=== PATIENT | female | born 1975 | race Caucasian/White ===

== ENCOUNTER → 2018-11-11 07:36 | Outpatient (CLI) | payer OTHER, SELFPAY ==
--- NOTE | 2018-11-11 | DI.MG.S_ITS ---
BILATERAL DIGITAL SCREENING MAMMOGRAM 3D/2D WITH CAD: 11/11/2018 CLINICAL: Routine screening. Family history of breast cancer. Comparison is made to exams dated: 10/22/2017 mammogram, 06/02/2016 mammogram, and 04/22/2015 mammogram - [facility]. The tissue of both breasts is heterogeneously dense. This may lower the sensitivity of mammography. Current study was also evaluated with a Computer Aided Detection (CAD) system. There is an asymmetry in the left breast middle depth lateral region seen on the craniocaudal view only. No other significant masses, calcifications, or other findings are seen in either breast. IMPRESSION: INCOMPLETE: NEEDS ADDITIONAL IMAGING EVALUATION The asymmetry in the left breast is indeterminate. Ultrasound with possible additional views are recommended. This exam was interpreted at Station ID: [id number]. NOTE: For mammograms, a report in lay terms will be sent to the patient. Approximately 15% of breast malignancies will not be visualized mammographically. In the management of a palpable breast mass, a negative mammogram must not discourage biopsy of a clinically suspicious lesion. Electronically Signed By: Mariajose summers/orion:11/11/2018 16:24:58 letter sent: Additional Imaging Needed ACR BI-RADS Category 0: Incomplete 3340F
== END ==
PROVIDERS: PCP Family Medicine; Visit Provider Internal Medicine
DX: Z12.31 Encounter for screening mammogram for malignant neoplasm of breast (principal); Z80.3 Family history of malignant neoplasm of breast
CPT/HCPCS: 77063; 77067

== ENCOUNTER → 2018-12-03 13:14 | Outpatient (CLI) | payer OTHER, SELFPAY ==
--- NOTE | 2018-12-03 12:00 | DI.MG.S_ITS ---
Patient Name: JC MAR date: 1975 Sex: F Attending Physician: Jeff Indications: Date: 12/03/2018 13:37 At the request of: JAMES LOZA Procedure: MM special view LT UNILATERAL LEFT DIGITAL DIAGNOSTIC MAMMOGRAM 3D/2D WITH ADDITIONAL VIEWS: 12/03/2018 CLINICAL: Additional evaluation requested from prior study. Family history of breast cancer. Comparison is made to exams dated: 11/11/2018 mammogram, 06/02/2016 mammogram, and 10/22/2017 mammogram - [facility]. The tissue of left breast is heterogeneously dense. This may lower the sensitivity of mammography. There is an oval equal density mass measuring 10mm in size with a circumscribed margin in the left breast central to the nipple anterior depth 3.5 cm from the nipple. No architectural distortion. No other significant masses or calcifications are seen in the breast. IMPRESSION: INCOMPLETE: NEEDS ADDITIONAL IMAGING EVALUATION The oval equal density mass in the left breast is indeterminate. An ultrasound is recommended and will be performed immediately after this study. This exam was interpreted at Station ID: [id number]. NOTE: For mammograms, a report in lay terms will be sent to the patient. Approximately 15% of breast malignancies will not be visualized mammographically. In the management of a palpable breast mass, a negative mammogram must not discourage biopsy of a clinically suspicious lesion. Electronically Signed By: Ladarius Guthrie M.D. aty/:12/03/2018 19:11:11 ACR BI-RADS Category 0: Incomplete 3340F
--- NOTE | 2018-12-03 13:17 | DI.US.S_ITS ---
PROCEDURE: US BREAST LT LIMITED COMPARISON: None. INDICATIONS: Follow-up abnormal mammogram FINDINGS: IMPRESSION: Dictated by: Ladarius Guthrie M.D. on 12/03/2018 at 19:11 Approved by: Ladarius Guthrie M.D. on 12/03/2018 at 19:19
== END ==
PROVIDERS: PCP Internal Medicine; Visit Provider Internal Medicine
DX: R92.8 Other abnormal and inconclusive findings on diagnostic imaging of breast (principal); N60.02 Solitary cyst of left breast; Z80.3 Family history of malignant neoplasm of breast
CPT/HCPCS: 76642; 77065; G0279

== ENCOUNTER → 2019-03-13 15:24 | Outpatient (CLI) | payer OTHER, SELFPAY ==
[2019-03-13 16:40] LABS: Add Manual Diff / Slide Review NO; Basophils Absolute Auto 0 /uL (0-100); Basophils Percent Auto 0.4 % (0-2); Eosinophils Absolute Auto 100 /uL (0-450); Eosinophils Percent Auto 1.6 % (2-4); Hematocrit 40.2 % (36-46); Hemoglobin 13.4 g/dL (12.0-16.0); Lymphocytes Absolute Auto 2700 /uL (1100-4500); Lymphocytes Percent Auto 39.2 % (25-40); Mean Corpuscular HGB Conc 33.2 % (30-36); Mean Corpuscular Hemoglobin 29.9 PG (26-34); Mean Corpuscular Volume 89.9 fL (80-100); Monocytes Absolute Auto 500 /uL (0-900); Monocytes Percent Auto 6.6 % (3-14); Neutrophils Absolute Auto 3700 /uL (1500-7000); Neutrophils Percent Auto 52.2 % (50-75); Platelet Count 324 X10^3/uL (150-400); Red Blood Cell Count 4.48 X10^6/uL (4.0-5.2); Red Cell Distribution Width 13.2 % (11.6-14.8)
[2019-03-13 16:41] LABS: Monotest Negative (Negative)
[2019-03-13 18:31] LABS: Vitamin D 25 Hydroxy (D3) 41.3 ng/mL (30.0-100.0)
[2019-03-13 18:45] LABS: TSH w/ Reflex to FT4 1.21 uIU/mL (0.47-4.68)
[2019-03-13 18:46] LABS: BUN Creatinine Ratio 21.4 (6-22); Blood Urea Nitrogen 15 mg/dL (7-17); Calcium 9.6 mg/dL (8.4-10.2); Carbon Dioxide 24 mmol/L (22-32); Chloride 99 mmol/L (98-107); Estimated Glomerular Filt Rate > 60.0 mL/min (>60); Glucose 85 mg/dL (70-100); HEMOLYSIS < 15 (0-50); Potassium 4.4 mmol/L (3.4-5.1); Sodium 138 mmol/L (137-145)
[2019-03-13 19:36] LABS: Vitamin B12 936 pg/mL (239-931)
== END ==
PROVIDERS: PCP Student in an Organized Health Care Education/Training Program; Visit Provider Student in an Organized Health Care Education/Training Program
DX: R53.83 Other fatigue (principal); Z20.828 Contact with and (suspected) exposure to other viral communicable diseases; E66.9 Obesity, unspecified; F32.9 Major depressive disorder, single episode, unspecified; F41.9 Anxiety disorder, unspecified; Z91.89 Other specified personal risk factors, not elsewhere classified
CPT/HCPCS: 36415; 80048; 82306; 82607; 84443; 85025; 86318

== ENCOUNTER → 2019-06-02 08:50 | Outpatient (CLI) | payer OTHER, SELFPAY ==
--- NOTE | 2019-06-02 08:52 | DI.US.S_ITS ---
LIMITED ULTRASOUND OF LEFT BREAST AND AXILLA: 06/02/2019 CLINICAL: 6 month follow-up of complicated cysts. Additional spot on mammogram today. Comparison is made to exams dated: 06/02/2019 mammogram, 12/03/2018 ultrasound, 12/03/2018 mammogram, 11/11/2018 mammogram, 10/22/2017 mammogram, and 06/02/2016 mammogram - [facility]. Color flow and real-time ultrasound of the left breast 3 o'clock, 12 o'clock, and axilla regions were performed on the areas of interest. There is 1.3 cm x 0.4 cm x 1.2 cm oval complex cyst with a septated internal wall in the left breast at 12 o'clock middle depth. This oval complex cyst is of mixed echogenicity with posterior acoustic enhancement. This abnormality is increased in size and correlates with mammography findings. Color flow imaging demonstrates that there is no vascularity present. There also is 0.8 cm x 0.5 cm x 0.7 cm oval cyst with a septated internal wall in the left breast at 3 o'clock middle depth. This oval cyst is hypoechoic with internal echoes and posterior acoustic enhancement. This correlates with mammography findings. Color flow imaging demonstrates that there is no vascularity present. Additionally, there is a stable benign 0.7 cm x 0.4 cm x 0.7 cm oval simple cyst with a smooth internal wall in the left breast at 12 o'clock middle depth. This oval simple cyst is anechoic with a well-defined boundary and posterior acoustic enhancement. Color flow imaging demonstrates that there is no vascularity present. No abnormalities were seen sonographically in the left axilla. IMPRESSION: SUSPICIOUS OF MALIGNANCY The 1.3 cm x 0.4 cm x 1.2 cm oval complex cyst in the left breast at 12 o'clock middle depth is consistent with a complex cyst and is at a low suspicion for malignancy. An ultrasound guided biopsy is recommended. The 0.8 cm x 0.5 cm x 0.7 cm oval cyst in the left breast at 3 o'clock middle depth is consistent with a complicated cyst and is probably benign. Follow-up mammogram and ultrasound in 6 months is recommended. The stable 0.7 cm x 0.4 cm x 0.7 cm oval simple cyst in the left breast at 12 o'clock middle depth is benign. The findings were discussed with the patient at the conclusion of the study by Dr. Soriano. This exam was interpreted at Station ID: [id number]. Electronically Signed By: Chago Varghese M.D. ddgeorgie/:06/02/2019 15:16:47 letter sent: Biopsy Required Ultrasound BI-RADS: 4a Suspicious abnormality - low suspicion for malignancy
--- NOTE | 2019-06-02 08:52 | DI.MG.S_ITS ---
UNILATERAL LEFT DIGITAL DIAGNOSTIC MAMMOGRAM 3D/2D SHORT-TERM FOLLOW-UP: 06/02/2019 CLINICAL: Patient returns for a 6 month follow up of the left breast. Comparison is made to exams dated: 12/03/2018 mammogram, 11/11/2018 mammogram, and 10/22/2017 mammogram - [facility]. The tissue of left breast is heterogeneously dense. This may lower the sensitivity of mammography. There is 1 cm oval low density mass with a circumscribed margin in the left breast at 12 o'clock anterior depth. This is not significantly changed. There also is 0.7 cm oval low density mass with a circumscribed margin in the left breast at 2 o'clock middle depth. No other significant masses or calcifications are seen in the breast. IMPRESSION: INCOMPLETE: NEEDS ADDITIONAL IMAGING EVALUATION The 1 cm oval low density mass in the left breast at 12 o'clock anterior depth is indeterminate. An ultrasound is recommended. The 0.7 cm oval low density mass in the left breast at 2 o'clock middle depth is indeterminate. An ultrasound is recommended. This exam was interpreted at Station ID: [id number]. NOTE: For mammograms, a report in lay terms will be sent to the patient. Approximately 15% of breast malignancies will not be visualized mammographically. In the management of a palpable breast mass, a negative mammogram must not discourage biopsy of a clinically suspicious lesion. Electronically Signed By: Chago enamorado/orion:06/02/2019 09:43:27 ACR BI-RADS Category 0: Incomplete 3340F
== END ==
PROVIDERS: PCP Student in an Organized Health Care Education/Training Program; Visit Provider Registered Nurse
DX: R92.8 Other abnormal and inconclusive findings on diagnostic imaging of breast (principal); N60.02 Solitary cyst of left breast
CPT/HCPCS: 76642; 77065; G0279

== ENCOUNTER → 2019-06-08 13:08 | Outpatient (CLI) | payer OTHER, SELFPAY | PROVIDERS: PCP Student in an Organized Health Care Education/Training Program; Visit Provider Physician Assistant | DX: J02.9 Acute pharyngitis, unspecified (principal) | CPT/HCPCS: 87070 ==

== ENCOUNTER → 2019-06-23 07:40 | Outpatient (CLI) | payer OTHER, SELFPAY ==
--- NOTE | 2019-06-23 | DI.MG.S_ITS ---
UNILATERAL LEFT DIGITAL DIAGNOSTIC MAMMOGRAM POST-NEEDLE BIOPSY: 06/23/2019 CLINICAL: Left breast mass. Comparison is made to exams dated: 06/02/2019 mammogram, 12/03/2018 mammogram, and 11/11/2018 mammogram - [facility]. The tissue of left breast is heterogeneously dense. This may lower the sensitivity of mammography. There is a biopsy clip in the left breast at 12 o'clock at the biopsy site. IMPRESSION: INCOMPLETE: NEEDS ADDITIONAL IMAGING EVALUATION The biopsy clip is at the biopsy site. This exam was interpreted at Station ID: [id number]. NOTE: For mammograms, a report in lay terms will be sent to the patient. Approximately 15% of breast malignancies will not be visualized mammographically. In the management of a palpable breast mass, a negative mammogram must not discourage biopsy of a clinically suspicious lesion. Electronically Signed By: Rhina Sharma M.D. fx/:06/23/2019 09:06:45 ACR BI-RADS Category 0: Incomplete 3340F
--- NOTE | 2019-06-23 | PATH_ITS ---
[facility] Accession Number: [id number] . 01 Material submitted: . breast - LEFT BREAST MASS 12:00 5 CM FROM NIPPLE . 01 Clinical history: . MASS OF LEFT BREAST . 01 Diagnosis: Left Breast, Mass at 12 o'clock, 5 cm from Nipple, Biopsy: Fragments of apocrine cyst wall. Background breast with fibrocystic change including focal usual ductal hyperplasia, columnar cell change/hyperplasia, and associated microcalcifications. Negative for atypia, carcinoma in situ, and malignancy. V/06/24/2019 . 01 Comment: Deeper levels are examined. . 01 Electronically signed: . Rosa Corrales MD, Pathologist NPI- [id number] . 01 Gross description: . Received one formalin-filled container labeled with the patient's name and designated left breast mass 12 o'clock 5 cm from nipple. The specimen is received with a plastic filter, sample loose in container and consists of multiple light yellow-jerry portions of soft tissue which range in size from less than 0.1 cm to 0.8 cm in greatest dimension. The specimen is filtered, wrapped, and entirely submitted in one cassette. Collection date: 06/23/2019. Collection time per container: 8:40 AM. Total fixation time: 12 hours, up to 24. ([id number]) /FRR . 01 Pathologist provided ICD-10: N60.09 . 01 CPT . 098975 Performed at: [address] [id number] MD Chago Gomez MD Phone: [phone]
--- NOTE | 2019-06-23 07:42 | DI.US.S_ITS ---
ULTRASOUND GUIDED BIOPSY LEFT BREAST USING VACUUM DEVICE WITH POST MAMMOGRAPHIC AND ULTRASOUND IMAGIN06/23/2019 CLINICAL: Left breast mass. PATIENT CONSENT: Risks (minor bleeding, infection, vasovagal reaction and repeat procedure), benefits and alternatives were explained to the patient and written informed consent was obtained. Correlation is made to exams dated: 06/02/2019 ultrasound, 06/02/2019 mammogram, 12/03/2018 ultrasound, 12/03/2018 mammogram, and 11/11/2018 mammogram - [facility]. An ultrasound guided biopsy using real-time ultrasound was performed for the complex cyst located in the left breast at 12 o'clock. This was described on the previous ultrasound report. The skin was prepped in the usual manner. Local anesthetic was administered to the access site. The abnormality was approached from the lateral aspect. A 13 gauge biopsy needle was placed adjacent to the abnormality under ultrasound guidance. Once the needle was documented to be in the correct location, six specimens were obtained using the Mammotome biopsy system. Post procedure mammographic and ultrasound imaging demonstrates the clip at the targeted area. The specimens were sent to the laboratory for pathological analysis. IMPRESSION: ULTRASOUND GUIDED BIOPSY BENIGN Ultrasound guided biopsy of the cyst in the left breast posterior depth was successful. Pathology indicates benign cyst (BC), usual ductal hyperplasia (DHU), fibrocystic changes (FC), and columnar cell change with micro-calcifications present. Pathology results are concordant with imaging findings. The 0.8 cm x 0.5 cm x 0.7 cm oval cyst in the left breast at 3 o'clock middle depth is consistent with a complicated cyst and is probably benign. Follow-up mammogram and ultrasound in 6 months is recommended. This exam was interpreted at Station ID: [id number]. Rhina alejo,kristopher/:06/30/2019 17:42:47
== END ==
PROVIDERS: PCP Student in an Organized Health Care Education/Training Program; Visit Provider Registered Nurse
DX: N63.20 Unspecified lump in the left breast, unspecified quadrant (principal); R92.8 Other abnormal and inconclusive findings on diagnostic imaging of breast; N60.09 Solitary cyst of unspecified breast
CPT/HCPCS: 19083; 77065

== ENCOUNTER 2019-07-29 16:50 | Emergency (ER) | payer OTHER, SELFPAY ==
[2019-07-29] VITALS (17 sets, daily range): BP systolic 124–187; BP diastolic 81–112; PULSE 80–114; RESP 11–20; TEMP 37; O2SAT 96–100; BMI 32.8
--- NOTE | 2019-07-29 16:59 | DI.RAD.S_ITS ---
PROCEDURE: XR ANKLE LT 2V INDICATIONS: slipped and fell on ankle TECHNIQUE: 2 views of the ankle were acquired. COMPARISON: None. FINDINGS: Bones: There is a dislocated, comminuted, displaced distal fibular fracture and distal tibial fracture. The fibular fracture appears impacted. The talus appears grossly intact. The calcaneus appears intact. The mid foot and visualized portions of the forefoot appear intact. Soft tissues: No tibiotalar joint effusion. Achilles tendon appears normal. IMPRESSION: Fracture dislocation at the mortise joint which is only partially characterized on this limited view. Dictated by: Mariajose Israel M.D. on 07/29/2019 at 17:24 Approved by: Mariajose Israel M.D. on 07/29/2019 at 17:26
[2019-07-29] MEDS: ONDANSETRON 4 MG/2 ML INJ IV (17:03)
[2019-07-29] MEDS: HYDROMORPHONE 0.5 MG INJ IV ×3 (17:03→21:45)
--- NOTE | 2019-07-29 17:06 | ED.LOWEXIN ---
HPI - Extremity Injury (Lower) <DARELL Choudhury - Last Filed: 07/30/19 00:08> General Chief Complaint: Extremity Injury, Lower Stated Complaint: L ankle Fx Time Seen by Provider: 07/29/19 16:55 Source: patient and EMS Mode of arrival: EMS Limitations: no limitations History of Present Illness HPI Narrative: This is a 43-year-old female, smoker, brought in by [employer]ics from her work after she had injured her left ankle. Patient reports she was trying to break off a box by stepping on it, she missed the landing on a ground and fell backwards and immediately for heard popping sounds with pain. Patient reports some tingling and numbness to right foot, able to move but with pain, and has sensation. Patient denies injuring any other areas including head, neck, arms. Patient's affected foot and ankle was splinted by a pillow and had received analgesia before arriving to ED by EMS. Related Data Home Medications Medication Instructions Recorded Confirmed multivitamin [Multiple Vitamins] #0 04/30/17 06/08/19 [probiotic ] #0 01/07/18 06/08/19 ascorbic acid (vitamin C) 1,000 mg PO QDAY #0 01/07/18 06/08/19 Previous Rx's Medication Instructions Recorded omeprazole magnesium [Prilosec OTC] 20 mg PO QDAY #30 tab 07/17/17 buspirone 15 mg tablet 15 mg PO BID #180 tab 08/05/18 cetirizine 10 mg chewable tablet 10 mg PO QDAY #90 tab 08/05/18 escitalopram oxalate 20 mg tablet 20 mg PO QDAY #90 tab 08/05/18 bupropion HCl 150 mg 24 hr tablet, 150 mg PO QAM #30 tab 04/11/19 extended release hydrocodone-acetaminophen [[place]] 1 tab PO Q6H PRN #20 tab 07/29/19 Allergies Allergy/AdvReac Type Severity Reaction Status Date / Time No Known Drug Allergies Allergy Verified 07/29/19 16:58 Review of Systems <DARELL Choudhury - Last Filed: 07/30/19 00:08> Review of Systems Narrative: General: Denies fever, chills, fatigue, malaise, sweats. HEENT: Denies sinus pain, ear pain, sore throat, difficulty swallowing, dizziness. Respiratory: Denies dyspnea, cough, wheezing, hemoptysis, sputum. Cardiovascular: Denies chest pain, palpitations, orthopnea, edema. Gastrointestinal: Denies nausea, vomiting, abdominal pain, diarrhea, constipation, melena. : Denies dysuria, frequency, incontinence, hematuria, urinary retention. Musculoskeletal: See HPI Skin: Denies rash, skin lesions, or other. Neurologic: Denies weakness, headache, numbness, change in speech, confusion, seizures, incoordination. Psychiatric: No concerning psychosocial issues. 12-point review of systems is negative except for those stated above. PFSH <DARELL Choudhury - Last Filed: 07/30/19 00:08> Medical History Abnormal Pap smear of cervix (Chronic ~08/2014) Methamphetamine abuse (Chronic) Vaginal delivery (Resolved) Family History (Updated 04/09/14 @ 00:00 by Darya Hernandez MD) Mother Breast cancer Social History Smoking Status: Current every day smoker alcohol intake: never substance use type: does not use Family History Mother Breast cancer Social History Smoking Status: Current every day smoker alcohol intake: never substance use type: does not use Exam <DARELL Choudhury - Last Filed: 07/30/19 00:08> Narrative Exam Narrative: GEN: Alert, oriented x 3, well appearing and nourished, and in no acute distress. Head: Normal cephalic, atraumatic. No scalp or temporal tenderness, palpable mass or rash. EYES: Pupils are equal, round, and reactive to light and accommodation. Extraocular muscles are intact bilaterally. There is no subconjunctival hemorrhage, exudate and sclera non-icteric. ENT: Bilateral auditory canals and tympanic membranes clear. Hearing grossly intact. Nose without bleeding, purulent discharge or deviation. Facial sinuses nontender to palpate. Mucous membrane moist, no mucosal lesion. Throat without erythema, tonsillar hypertrophy or exudate. Uvula in midline, airway patent. Neck: Trachea in midline. No JVD, non-tender without lymphadenopathy. No masses or thyroid megaly. Supple, non-tender and no meningeal signs. CARDIAC: Normal regular rate and rhythm without murmurs, gallops, or rubs. No chest wall tenderness. No peripheral edema, cyanosis or pallor. Capillary refill is less than 2 seconds. RESPIRATORY: Lungs are cleat to auscultate bilaterally. No cough, wheezes, rales, or rhonchi. No stridor, respiratory distress, increase work of breathing, or accessary muscle used. ABD: Abdomen soft, nontender and non-distended. No guarding or rebound tenderness to palpate. Bowel sounds are normal in all 4 quadrants. There is no palpable masses or organomegaly. SKIN: Warm, dry, normal color for patient. No erythema, lesions or rash over visible areas. BACK: Nontender without deformity or crepitance. No flank tenderness. NEUROLOGICAL: Alert and oriented to place, time and person. Sensation and motor function intact bilaterally. No facial droops, dysphasia. PSYCHIATRIC: Good judgement and reason, without hallucinations, abnormal affect or abnormal behaviors during the examination. Patient is not suicidal. Initial Vital Signs Initial Vital Signs: Vital Signs Temperature 98.6 F 07/29/19 16:54 Pulse Rate 113 H 07/29/19 16:54 Respiratory Rate 07/29/19 16:54 Blood Pressure 187/106 H 07/29/19 16:54 Pulse Oximetry 97 07/29/19 16:54 Extrem Left lower extremity: ankle Details: abnormal to inspection Details: obviously dislocated, tenderness (all area), no edema and abnormal ROM Details: pain with active ROM, pain with passive ROM and with range as follows (able to move toes with pain) and foot Details: vascular exam Details: dorsalis pedis pulse present, posterior tibial pulse present and normal capillary refill; not cool and no cyanosis <Gera Griffith DO - Last Filed: 07/30/19 02:17> Initial Vital Signs Initial Vital Signs: Vital Signs Temperature 98.6 F 07/29/19 16:54 Pulse Rate 113 H 07/29/19 16:54 Respiratory Rate 20 07/29/19 16:54 Blood Pressure 187/106 H 07/29/19 16:54 Pulse Oximetry 97 07/29/19 16:54 Procedures <BETTY ChoudhuryP Last Filed: 07/30/19 00:08> Orthopedic Fracture Reduction Fracture #1: Time Out Performed: Yes Side: left Fracture Reduction Location: tibia and fibula Analgesia: procedural sedation Technique: direct manipulation and traction/counter-traction Post Reduction X-rays Demonstrate: anatomical reduction Post-reduction neuro exam: other Post-reduction vascular exam: other (tingling but no numbness, cap refill 2-3 seconds ) Splint Applied: Yes (posterior/stirup) Patient Tolerated Procedure: Well Additional Comments: Procedural sedation for closed reduction for distal tip/fib fracture and dislocation done for twice to have appropriate anatomical position Orthopedic Splinting/Casting Injury #1: Side: left Lower Extremity Injury Location: ankle and foot Lower Extremity Immobilizer: posterior splint and stirrup splint Other Orthopedic Equipment: crutches Post splinting neuro exam: other (tingling but no numbness, cap refill 2-3 seconds) Post splinting vascular exam: intact Placed by: Provider Procedural Sedation Patient Age: Patient is 5yrs or older Consent signed: Yes Time out performed: Yes Indication: fracture/dislocation reduction ASA Class: II (smoker, obesity) Mallampati Airway Classification: Class II Time of Last PO Intake: 13:00 Preparation: product development manager applied and IV secured IV Propofol dose (mg): 220 (administered 120mg during 1st procedural sedation, administered 100 mg during 2nd procedure of sedation) ED Sedation Level: Moderate (Concious) Patient Tolerated Procedure: Well Complications: none Scores <Rory PattersonRoccoBETTY [facility] Last Filed: 07/30/19 00:08> GCS Jeanmarie coma scale eye opening: Spontaneous Jeanmarie coma scale verbal response: Orientated [place] coma scale motor response: Obey commands [place] coma scale total score: 15 Nexus Score for C-Spine Focal Neurologic deficit present: No Midline spinal tenderness present: No Altered level of conciousness present: No Intoxication present: No Distracting Injury Present: Yes Nexus Criteria for C-spine: 1 Course <DARELL Choudhury Last Filed: 07/30/19 00:08> Orders Ordered: ED Orders 07/29/19 18:39 XR ankle LT 2V Stat 07/29/19 19:45 XR ankle LT min 3V Stat 07/29/19 21:22 XR ankle LT 2V Stat 07/29/19 21:27 CT LE LT wo con Stat Discontinued Medications Hydrocodone Bitart/Acetaminophen ([place] 5/325) 2 tab PO NOW ONE Stop: 07/29/19 22:53 Last Admin: 07/29/19 22:55 Dose: 2 tab Documented by: EMMANUEL Hydrocodone Bitart/Acetaminophen (Vicodin Prepack) 1 bottle MISC SEEINSTR ONE Stop: 07/29/19 23:19 Last Admin: 07/29/19 23:23 Dose: 1 bottle Documented by: ROBBIN Hydromorphone HCl (Dilaudid) 0.5 mg IV NOW ONE Stop: 07/29/19 17:01 Last Admin: 07/29/19 17:03 Dose: 0.5 mg Documented by: EMMANUEL Hydromorphone HCl (Dilaudid) 0.5 mg IV NOW ONE Stop: 07/29/19 20:11 Last Admin: 07/29/19 20:19 Dose: 0.5 mg Documented by: EMMANUEL Hydromorphone HCl (Dilaudid) 0.5 mg IV NOW ONE Stop: 07/29/19 21:38 Last Admin: 07/29/19 21:45 Dose: 0.5 mg Documented by: EMMANUEL Ondansetron HCl (Zofran) 4 mg IV NOW ONE Stop: 07/29/19 17:01 Last Admin: 07/29/19 17:03 Dose: 4 mg Documented by: EMMANUEL Propofol (Diprivan) 180 mg 2 mg/kg (180 mg) IV NOW ONE Stop: 07/29/19 18:19 Last Admin: 07/29/19 19:01 Dose: 120 mg Documented by: EMMANUEL Propofol (Diprivan) 180 mg 2 mg/kg (180 mg) IV NOW ONE Stop: 07/29/19 20:51 Last Admin: 07/29/19 21:14 Dose: 100 mg Documented by: EMMANUEL Vital Signs Vital signs: Vital Signs - 8 hr 07/29/19 18:20 07/29/19 18:23 07/29/19 18:37 Pulse Rate 94 H 114 H 101 H Respiratory Rate 18 18 Blood Pressure [Right Arm] 172/101 H 131/90 Pulse Oximetry 97 100 07/29/19 18:42 07/29/19 18:47 07/29/19 18:52 Pulse Rate 104 H 103 H 97 H Respiratory Rate 18 16 14 Blood Pressure [Right Arm] 147/95 H 148/98 H 142/102 H Pulse Oximetry 98 97 100 07/29/19 19:02 07/29/19 20:07 07/29/19 21:14 Pulse Rate 107 H 101 H 110 H Respiratory Rate 20 17 13 Blood Pressure [Right Arm] 150/96 H 149/101 H 165/101 H Pulse Oximetry 98 100 100 07/29/19 21:19 07/29/19 21:24 07/29/19 21:29 Pulse Rate 93 H 103 H 102 H Respiratory Rate 11 L 19 20 Blood Pressure [Right Arm] 124/81 140/91 H 157/89 H Pulse Oximetry 96 100 98 07/29/19 21:34 07/29/19 23:00 Pulse Rate 103 H 80 Respiratory Rate 18 12 Blood Pressure [Right Arm] 139/87 161/112 H Pulse Oximetry 99 100 <Gera Griffith DO - Last Filed: 07/30/19 02:17> Orders Ordered: ED Orders 07/29/19 18:39 XR ankle LT 2V Stat 07/29/19 19:45 XR ankle LT min 3V Stat 07/29/19 21:22 XR ankle LT 2V Stat 07/29/19 21:27 CT LE LT wo con Stat Discontinued Medications Hydrocodone Bitart/Acetaminophen ([place] 5/325) 2 tab PO NOW ONE Stop: 07/29/19 22:53 Last Admin: 07/29/19 22:55 Dose: 2 tab Documented by: EMMANUEL Hydrocodone Bitart/Acetaminophen (Vicodin Prepack) 1 bottle MISC SEEINSTR ONE Stop: 07/29/19 23:19 Last Admin: 07/29/19 23:23 Dose: 1 bottle Documented by: ROBBIN Hydromorphone HCl (Dilaudid) 0.5 mg IV NOW ONE Stop: 07/29/19 17:01 Last Admin: 07/29/19 17:03 Dose: 0.5 mg Documented by: EMMANUEL Hydromorphone HCl (Dilaudid) 0.5 mg IV NOW ONE Stop: 07/29/19 20:11 Last Admin: 07/29/19 20:19 Dose: 0.5 mg Documented by: EMMANUEL Hydromorphone HCl (Dilaudid) 0.5 mg IV NOW ONE Stop: 07/29/19 21:38 Last Admin: 07/29/19 21:45 Dose: 0.5 mg Documented by: EMMANUEL Ondansetron HCl (Zofran) 4 mg IV NOW ONE Stop: 07/29/19 17:01 Last Admin: 07/29/19 17:03 Dose: 4 mg Documented by: EMMANUEL Propofol (Diprivan) 180 mg 2 mg/kg (180 mg) IV NOW ONE Stop: 07/29/19 18:19 Last Admin: 07/29/19 19:01 Dose: 120 mg Documented by: EMMANUEL Propofol (Diprivan) 180 mg 2 mg/kg (180 mg) IV NOW ONE Stop: 07/29/19 20:51 Last Admin: 07/29/19 21:14 Dose: 100 mg Documented by: EMMANUEL Vital Signs Vital signs: Vital Signs - 8 hr 07/29/19 18:20 07/29/19 18:23 07/29/19 18:37 Pulse Rate 94 H 114 H 101 H Respiratory Rate 18 18 Blood Pressure [Right Arm] 172/101 H 131/90 Pulse Oximetry 97 100 07/29/19 18:42 07/29/19 18:47 07/29/19 18:52 Pulse Rate 104 H 103 H 97 H Respiratory Rate 18 16 14 Blood Pressure [Right Arm] 147/95 H 148/98 H 142/102 H Pulse Oximetry 98 97 100 07/29/19 19:02 07/29/19 20:07 07/29/19 21:14 Pulse Rate 107 H 101 H 110 H Respiratory Rate 20 17 13 Blood Pressure [Right Arm] 150/96 H 149/101 H 165/101 H Pulse Oximetry 98 100 100 07/29/19 21:19 07/29/19 21:24 07/29/19 21:29 Pulse Rate 93 H 103 H 102 H Respiratory Rate 11 L 19 20 Blood Pressure [Right Arm] 124/81 140/91 H 157/89 H Pulse Oximetry 96 100 98 07/29/19 21:34 07/29/19 23:00 Pulse Rate 103 H 80 Respiratory Rate 18 12 Blood Pressure [Right Arm] 139/87 161/112 H Pulse Oximetry 99 100 MDM - Extremity Injury (Lower) <DARELL Choudhury - Last Filed: 07/30/19 00:08> Differential Diagnosis Differential diagnosis: Likely ankle sprain and strain, ankle fracture and other (ankle dislocation) Medical Records Attestation: I reviewed the patient's medical records. Imaging Data XR-Ankle LT: Radiologist's impression: [address] [address] XRay Report Signed Patient: Leonora Rojas JMR#: [id number] : 1975Acct:[id number] Age/Sex: 43 / FDate of Service: 07/29/19 Loc: ED Accession Number: [id number] Procedure: XR ankle LT 2V Ordering Provider: Royr Friedman PROCEDURE: XR ANKLE LT 2V INDICATIONS: slipped and fell on ankle TECHNIQUE: 2 views of the ankle were acquired. COMPARISON: None. FINDINGS: Bones: There is a dislocated, comminuted, displaced distal fibular fracture and distal tibial fracture. The fibular fracture appears impacted. The talus appears grossly intact. The calcaneus appears intact. The mid foot and visualized portions of the forefoot appear intact. Soft tissues: No tibiotalar joint effusion. Achilles tendon appears normal. IMPRESSION: Fracture dislocation at the mortise joint which is only partially characterized on this limited view. Dictated by: Mariajose Israel M.D. on 07/29/2019 at 17:24 Approved by: Mariajose Israel M.D. on 07/29/2019 at 17:26 CT- Lower extr LT: Radiologist's impression: complex trimalleolar fractures; 2cm anterior dislocation of the tibia releative to the talar dome XR-Ankle LT post 2nd closed reduction: Radiologist's impression: [address] [address] XRay Report Signed Patient: Leonora Rojas JMR#: [id number] : 1975Acct:[id number] Age/Sex: 43 / FDate of Service: 07/29/19 Loc: ED Accession Number: [id number] Procedure: XR ankle LT 2V Ordering Provider: Rory Friedman PROCEDURE: XR ANKLE LT 2V INDICATIONS: post 2nd reduction xray TECHNIQUE: Lateral views of the ankle were acquired. COMPARISON: None. FINDINGS: Bones: There has been interval reduction of the fracture dislocation of the left ankle. The tibia is now aligned with the talar dome. The fibular fracture fragments are in near-anatomic alignment. Soft tissues: No tibiotalar joint effusion. Achilles tendon appears normal. IMPRESSION: Status post reduction of the left ankle fracture dislocation. Dictated by: Mariajose Israel M.D. on 07/29/2019 at 21:40 Approved by: Mariajose Israel M.D. on 07/29/2019 at 21:41 XR-Ankle LT after 1st closed reduction: Radiologist's impression: [address] [address] XRay Report Signed Patient: Leonora Rojas R#: [id number] : 1975Acct:[id number] Age/Sex: 43 / FDate of Service: 07/29/19 Loc: ED Accession Number: [id number] Procedure: XR ankle LT 2V Ordering Provider: Gera Griffith D.O. PROCEDURE: XR ANKLE LT 2V INDICATIONS: post reduction TECHNIQUE: 3 views of the ankle were acquired. COMPARISON: [facility] , XR ANKLE LT 2V, 07/29/2019, 17:01. FINDINGS: Bones: Fracture dislocation of the mortise joint is redemonstrated. There is partial reduction of the fracture; however the fibula remains posteriorly displaced of the tibia remains anteriorly displaced with respect to the talus. Soft tissues: Soft tissues are obscured by cast material. IMPRESSION: Partial interval reduction of the ankle fracture dislocation. Dictated by: Mariajose Israel M.D. on 07/29/2019 at 19:01 Approved by: Mariajose Israel M.D. on 07/29/2019 at 19:03 XR-Ankle LT, Lateral &Mortis view, post 1st closed reduction: Radiologist's impression: [address] [address] XRay Report Signed Patient: Leonora Rojas R#: [id number] : 1975Acct:[id number] Age/Sex: 43 / FDate of Service: 07/29/19 Loc: ED Accession Number: [id number] Procedure: XR ankle LT min 3V Ordering Provider: Rory Friedman PROCEDURE: XR ANKLE LT MIN 3V INDICATIONS: post reduction #2 xray TECHNIQUE: 3 views of the ankle were acquired. COMPARISON: None. FINDINGS: Bones: Left ankle fracture dislocation is redemonstrated. There is improved reduction of the displaced tibial and fibular fractures. The tibia remains displaced 2.1 cm anterior with respect to the talus. Soft tissues: No tibiotalar joint effusion. Achilles tendon appears normal. IMPRESSION: Improved reduction of the left ankle fracture dislocation. Dictated by: Mariajose Israel M.D. on 07/29/2019 at 20:23 Approved by: Mariajose Israel M.D. on 07/29/2019 at 20:24 [facility] Narrative Medical decision making narrative: The patient was brought in by [employer] from work after she injured her left ankle. She was a trying to break down a box by stepping on it and slipped and fell backwards on a concrete floor. Patient had severe deformity on left ankle. Patient had a intact dorsal pedal and posterior tibial pulse on affected foot, mild tingling and numbness on affected foot. X-ray test showed closed distal by bimalleolar fracture with dislocation. Procedural sedation for closed reduction was done by Dr. Griffith and assisted by myself. First attempt for closed reduction was done with procedural sedation was partially successful according to 2 post reduction x-ray tests. Second procedure sedation was done by with improved left ankle fracture dislocation which shows tibia aligned with Talar dome and fibular fragments are in near anatomical alignment. Please see procedural sedation note. Post left lower extremity CT scan test was obtained per Dr. Obrien, orthopedist. The affected leg was splinted with posterior and stir up and crutch has been provided with teaching. Patient was able to demonstrate back the appropriate crutch use for nonweightbearing on affected fractured limb. Patient was medicated several times with IV analgesic and p.o. analgesic medication prior DC to home with moderately improved pain. Work off note has been provided. Return precautions were discussed with patient and significant other along the narcotic medication precautions for home use. [facility]. Advised to use RICE therapy at home to decrease swelling and pain. The patient and significant other agree with the treatment plan and no further questions were expressed. Discharge Plan Departure Patient Disposition: Home Clinical Impression: Ankle fracture, bimalleolar, closed Qualifiers: Encounter type: initial encounter Laterality: left Qualified Code(s): S82.842A - Displaced bimalleolar fracture of left lower leg, initial encounter for closed fracture Discharge Date/Time: 07/29/19 23:42 Instructions: DI for Ankle Fracture Activity Restrictions/Additional Instructions: You have been diagnosed with [closed distal fibula and tibia fracture with dislocation on your left ankle from fall. You're left ankle fracture and dislocation has been reduced with the procedural sedation in ED]. What to do: *Take your medications as directed. Please take skee-hss-kgllmer Tylenol for mild to moderate discomfort. You can take a [place] for moderate to severe pain. This will cause constipation so please take high-fiber diet with adequate hydration and possibly [id number] stool softener. [place] will cause drowsiness so please do not drive, drink alcohol, operate heavy equipments. Please to not bear weight on your fractured ankle and wear splint all time. Use crutches for ambulation. Please use ?RICE? therapy such as Rest, Ice, Compression/Spliint/Acewra, and Elevation above the chest level. Ice the area for next 24-48 hrs after the initial injury. Please try to avoid getting swelling to the affected site since this may cause increasing pain. You could use OTC Tylenol and or Ibuprofen as needed for pain. Please monitor for increasing pain, swelling, tingling/numbness, unable to move affected/below the injury site, cool limbs, chest pain, breathing difficulty, unable to tolerate fluids, or any acute concerns. *Follow up with your primary care provider and in 2-3 days and call orthopedist tomorrow and call for an appointment. Let them know you were seen in the ED and that we asked you to be seen in follow up. Prescriptions: New hydrocodone-acetaminophen [[place]] 5-325 mg tablet 1 tab PO Q6H PRN (Reason: pain) Qty: 20 RF: 0 No Action multivitamin [Multiple Vitamins] 1 EACH tablet Qty: 0 RF: 0 omeprazole magnesium [Prilosec OTC] 20 MG tablet,delayed release (DR/EC) 20 mg PO QDAY Qty: 30 RF: 3 ascorbic acid (vitamin C) 500 MG tablet 1,000 mg PO QDAY Qty: 0 RF: 0 [probiotic ] Qty: 0 RF: 0 bupropion HCl 150 mg tablet extended release 24 hr 150 mg PO QAM Qty: 30 RF: 5 buspirone 15 mg tablet 15 mg PO BID Qty: 180 RF: 3 cetirizine 10 mg tablet,chewable 10 mg PO QDAY Qty: 90 RF: 3 escitalopram oxalate [Lexapro] 20 mg tablet 20 mg PO QDAY Qty: 90 RF: 3 Referrals: [facility] [Outside] Javan Carrera MD [Primary Care Provider] - Stand Alone Forms: Work Release Note <Gera Griffith DO - Last Filed: 07/30/19 02:17> Sign Out Provider Sign Out Attestation: I was immediately available in the department for consultation. Documentation has been reviewed. I agree with assessment and plan.
--- NOTE | 2019-07-29 18:39 | DI.RAD.S_ITS ---
PROCEDURE: XR ANKLE LT 2V INDICATIONS: post reduction TECHNIQUE: 3 views of the ankle were acquired. COMPARISON: [facility], CR, XR ANKLE LT 2V, 07/29/2019, 17:01. FINDINGS: Bones: Fracture dislocation of the mortise joint is redemonstrated. There is partial reduction of the fracture; however the fibula remains posteriorly displaced of the tibia remains anteriorly displaced with respect to the talus. Soft tissues: Soft tissues are obscured by cast material. IMPRESSION: Partial interval reduction of the ankle fracture dislocation. Dictated by: Mariajose Israel M.D. on 07/29/2019 at 19:01 Approved by: Mariajose Israel M.D. on 07/29/2019 at 19:03
[2019-07-29] MEDS: PROPOFOL 200 MG/20 ML VIAL 180 MG IV ×2 (19:01→21:14)
--- NOTE | 2019-07-29 19:45 | DI.RAD.S_ITS ---
PROCEDURE: XR ANKLE LT MIN 3V INDICATIONS: post reduction #2 xray TECHNIQUE: 3 views of the ankle were acquired. COMPARISON: None. FINDINGS: Bones: Left ankle fracture dislocation is redemonstrated. There is improved reduction of the displaced tibial and fibular fractures. The tibia remains displaced 2.1 cm anterior with respect to the talus. Soft tissues: No tibiotalar joint effusion. Achilles tendon appears normal. IMPRESSION: Improved reduction of the left ankle fracture dislocation. Dictated by: Mariajose Israel M.D. on 07/29/2019 at 20:23 Approved by: Mariajose Israel M.D. on 07/29/2019 at 20:24
--- NOTE | 2019-07-29 21:22 | DI.RAD.S_ITS ---
PROCEDURE: XR ANKLE LT 2V INDICATIONS: post 2nd reduction xray TECHNIQUE: Lateral views of the ankle were acquired. COMPARISON: None. FINDINGS: Bones: There has been interval reduction of the fracture dislocation of the left ankle. The tibia is now aligned with the talar dome. The fibular fracture fragments are in near-anatomic alignment. Soft tissues: No tibiotalar joint effusion. Achilles tendon appears normal. IMPRESSION: Status post reduction of the left ankle fracture dislocation. Dictated by: Mariajose Israel M.D. on 07/29/2019 at 21:40 Approved by: Mariajose Israel M.D. on 07/29/2019 at 21:41
--- NOTE | 2019-07-29 21:27 | DI.CT.S_ITS ---
PROCEDURE: CT LE LT W CON INDICATIONS: distal tib/fib fracture with dislocation, reduction x2 attmp TECHNIQUE: Noncontrast 3-mm axial sections acquired from the distal tibial shaft to the talar dome, with coronal and sagittal reformats.. COMPARISON: [facility], CR, XR ANKLE LT 2V, 07/29/2019, 17:01. [facility], CR, XR ANKLE LT 2V, 07/29/2019, 21:16. [facility], CR, XR ANKLE LT MIN 3V, 07/29/2019, 20:02. [facility], CR, XR ANKLE LT 2V, 07/29/2019, 18:44. FINDINGS: Image quality: Excellent. Bones: There is a comminuted fracture of the distal tibia involving the medial malleolus and posterior malleolus with displacement. A comminuted fracture of the distal fibula is seen above the ankle mortise with contrast involvement. There is posterior dislocation of talus at the tibiotalar joint and widening of joint space in the lateral ankle mortise. Soft tissues: There is soft tissue swelling and a small tibiotalar joint effusion. IMPRESSION: 1. Complex or trimalleolar fractures. 2. Posterior dislocation of talus at the tibiotalar joint. No significant discrepancy with the retail shift manager radiology preliminary report. Dictated by: Rhina Sharma M.D. on 07/30/2019 at 7:35 Approved by: Rhina Sharma M.D. on 07/30/2019 at 7:41
[2019-07-29] MEDS: HYDROCODONE/ACET 5/325 TABLET 2 TAB PO (22:55)
[2019-07-29] MEDS: HYDROCODONE/ACET 5/325 PREPACK 1 BOTTLE MISC (23:23)
== END 2019-07-29 23:42 | disposition home or self-care (01) ==
PROVIDERS: Emergency Provider Nurse Practitioner Family; PCP Student in an Organized Health Care Education/Training Program
DX: S82.842A Displaced bimalleolar fracture of left lower leg, initial encounter for closed fracture (principal); Y99.0 Civilian activity done for income or pay
CPT/HCPCS: 27752; 73600; 73610; 73700; 94770; 96374; 96375; 96376; 99152; 99285; 99291; J1170; J2405; J2704

== ENCOUNTER 2019-08-01 09:47 | Day surgery (SDC) | payer OTHER, SELFPAY ==
[2019-07-31 08:36] VITALS: BMI 32.9
[2019-08-01] VITALS (15 sets, daily range): BP systolic 138–164; BP diastolic 87–103; PULSE 86–106; RESP 9–21; TEMP 36.2–37.2; O2SAT 93–100; BMI 32.9
--- NOTE | 2019-08-01 | DI.RAD.S_ITS ---
PROCEDURE: XR ANKLE LT MIN 3V INDICATIONS: ORIF ANKLE FRACTURE VS. EXTERNAL FIXATION (L) TECHNIQUE: Intraoperative fluoroscopic views of the ankle were acquired. COMPARISON: [facility], , XR ANKLE LT 2V, 07/29/2019, 21:16. FINDINGS: Bones: Multiple intraoperative fluoroscopic views demonstrate ORIF of calcaneal, fibular, and tibial fractures. IMPRESSION: Multiple intraoperative fluoroscopic views of ORIF of the left lower extremity. Dictated by: Mariajose Israel M.D. on 08/01/2019 at 16:51 Approved by: Mariajose Israel M.D. on 08/01/2019 at 16:51
[2019-08-01] MEDS: fentaNYL 100 MCG/2 ML INJ 50 MCG IV ×7 (10:53→15:55)
[2019-08-01] MEDS: LACTATED RINGERS 1,000 ML 42 ML IV ×2 (10:55→14:36)
--- NOTE | 2019-08-01 11:18 | SUR.PREOP ---
Pt reported 6/10 LLE pain, medicated with Fentanyl. VS stable.
--- NOTE | 2019-08-01 12:02 | PM.PREOP ---
Pre-operative Note Interval Note History & Physical reviewed/Exam performed by Physician: Yes Changes to H&P: No
[2019-08-01] MEDS: MIDAZOLAM 2 MG/2 ML VIAL IV (13:17)
--- NOTE | 2019-08-01 13:50 | SUR.PREOP ---
Block start time [1317] . Monitoring initiated and maintained throughout procedure. Oxygen and medications given per anesthesiologist instructions. Patient remained stable throughout procedure, no adverse reactions noted. Block end time [1335].
[2019-08-01] MEDS: CEFAZOLIN 2 GM/100 ML FROZ.PIGGY IV (14:00)
--- NOTE | 2019-08-01 14:29 | SUR.OPER ---
Supine on padded OR bed, head on pillow, arms secured on padded arm boards at <90 degrees abduction, legs uncrossed, safety belt at thigh, tape over blanket over lower legs.
[2019-08-01] MEDS: ONDANSETRON 4 MG/2 ML INJ IV (15:29)
--- NOTE | 2019-08-01 15:30 | P.OP_ITS ---
Operative Date/Time/Diagnoses Date of procedure: 08/01/19 Time of procedure: 14:30 Pre-op diagnosis: Closed trimalleolar ankle fracture left S82.852 Post-op diagnosis: same Procedure & Clinicians Procedure: Application external fixation left trimalleolar ankle fracture multiplanar CPT code 96023 Same procedure as scheduled: Yes Indications: The patient is a 43-year-old female that [id number] She was kicking boxes where she works at [employer] when she fell she sustained a immediate pain and deformity of her left ankle. She was seen in the ER. The patient had a comminuted trimalleolar fracture. She was indicated for open reduction internal fixation versus external fixation depending on swelling of her extremity and appropriateness for skin incisions. Risks benefits and alternatives to the surgery were discussed with the patient in detail including but not limited to infection, nonunion, malunion, persistent pain, wound healing problems, amputation, DVT, pulmonary embolism, need for additional procedures, stroke, paralysis, , symptomatic hardware. The patient elected to proceed with surgery. Consent was signed in the office for open reduction internal fixation versus application of external fixation for staged fixation. Patient has no allergies to antibiotics this will be Ancef 2 g and has no history of DVT postoperatively will use aspirin for DVT prophylaxis. Surgeon: Joanne Obrien Medicaid Billing Clerk: Jennifer Esposito Anesthesia Type: General and Peripheral nerve block Operative Notes Findings: Comminuted trimalleolar ankle fracture with posterior subluxation of the tibial talar joint. The patient had extensive fracture blistering upon taking down her splint these were small blisters anteriorly but a large serous blistering all along her posterior lateral ankle right in the area for the posterior lateral approach would take place. Additionally she had smaller blisters over the dorsum of her foot. No him a drastic blisters were seen but the swelling was significant with an absence of wrinkles in this area. At this point a decision for a staged external fixation was made. Closure Type: not applicable Specimen(s): none sent Prosthetic devices, grafts, tissues, transplants, or devices: Arthrex external fixation delta frame Estimated Blood Loss (mL): 2 Blood products transfused: none Tourniquet time (min): 0 Procedure in detail: Patient was seen in the preoperative area site of surgery is more marked and informed consent confirmed. The patient was then brought back to the operating room by the Anesthesia Team patient received a preoperative block to help with postoperative pain control. General anesthesia was administered. The patient's splint was completely taken down this did reveal extensive serous blistering posterior laterally along the ankle in the area for the incision will be made anteriorly there were smaller more a minor serous blisters. There were no deeper hemorrhagic blisters no wounds or tented skin. They are smaller serous blisters over the dorsum of the foot. The swelling and blisters were in the direct area of the posterior lateral approach and at this point decision was made to do the staged external fixation of the fracture and come back once tissues were amenable for formal open reduction internal fixation. The patient was moved to the operative table in supine position. All bony prominences were well padded. A hip bump was placed under ipsilateral hip. A SCD was placed on the contralateral leg. The patient's left lower extremity was prepped and draped in the standard sterile fashion. A formal time-out procedure was performed confirming the patient's site and side of surgery presence of informed consent and administration of appropriate antibiotics. All were in agreement. At this point the C-arm was brought into the lateral position and locations were marked out for the calcaneal pin this was located on the medial side well within the tuberosity. This was marked on the skin. A sharp incision was made and hemostat was used to spread down to the bone. The transfixing calcaneal pin was then placed and drilled from medial to lateral through the calcaneus. This was confirmed under fluoroscopic guidance. Attention was then taken to the tibial pins. Location outside of the fracture site was identified on the tibia using fluoroscopy this was marked and then small skin incisions with a 15 blade were made over the tibia. This was dissected down with a hemostat and the pins and drill guides were placed onto the tibia. The tibia was then drilled bicortically with the 3 5 drill and 2 short 5 mm pins were placed bicortically. These were confirmed on fluoroscopy. The clamp was placed as well as the pin to bar clamps and bars selected for the delta frame. Once this was done and these were secured proximally and then traction with a bump under the heel was placed distally to reduce the tibiotalar joint correcting the posterior subluxation. And providing mild distraction. The distal clamps were then tightened and final tightened. Final x-rays were taken AP and lateral confirming the pin placement and reduction. This was satisfactory and the dressings were placed. Of note the serous blister large 1 did decompress during the prep of this was decompressed fully and on grooved and Xeroform was placed over all of the blister sites. Fluff gauze was then placed followed by bolstering of the pin sites Webril and a posterior splint to help maintain a plantigrade foot. Patient was then woken from anesthesia and taken to the recovery room in good condition. There no immediate complications from this procedure. All counts were correct. Complications: none Post-operative Condition: stable Disposition: PACU Plan for aftercare: Nonweightbearing left lower extremity. Aspirin for DVT prophylaxis. Will follow up in clinic in 2 weeks for wound check at that point she will be scheduled for definitive fixation with stage removal of external fixation open reduction internal fixation of her fracture.
[2019-08-01] MEDS: HYDROMORPHONE 2 MG INJ 0.5 MG IV ×2 (16:00→16:09)
[2019-08-01] MEDS: OXYCODONE IR 5 MG TABLET PO (16:51)
== END 2019-08-01 17:35 | disposition home or self-care (01) ==
PROVIDERS: PCP Student in an Organized Health Care Education/Training Program; Visit Provider Orthopaedic Surgery Foot and Ankle Surgery
PROC: (CPT 20692; principal; 2019-08-01 12:00)
DX: S82.852A Displaced trimalleolar fracture of left lower leg, initial encounter for closed fracture (principal); W22.09XA Striking against other stationary object, initial encounter; G89.18 Other acute postprocedural pain
CPT/HCPCS: 20692; 64450; 73610; 76000; J0330; J0690; J1100; J1170; J2250; J2405; J2704; J3010

== ENCOUNTER 2019-08-08 12:02 | Emergency (ER) | payer OTHER, SELFPAY ==
[2019-08-08 12:36] VITALS: BP 136/92; PULSE 108; RESP 18; TEMP 36.6; O2SAT 95; BMI 32.8
--- NOTE | 2019-08-08 19:04 | ED.GENADULT ---
HPI - General Adult General Chief complaint: Abdominal Pain Stated complaint: Constipation x5 days LEFT-12:53 Related Data Home Medications Medication Instructions Recorded Confirmed multivitamin [Multiple Vitamins] 1 tab PO DAILY #0 04/30/17 08/01/19 [probiotic ] #0 01/07/18 06/08/19 ascorbic acid (vitamin C) 1,000 mg PO QDAY #0 01/07/18 08/01/19 escitalopram oxalate [Lexapro] 20 mg PO DAILY 08/08/19 08/08/19 hydrocodone-acetaminophen 1 tab PO Q6H PRN 08/08/19 08/08/19 Previous Rx's Medication Instructions Recorded Prilosec OTC 20 mg PO QDAY #30 tab 07/17/17 buspirone 15 mg tablet 15 mg PO BID #180 tab 08/05/18 cetirizine 10 mg chewable tablet 10 mg PO QDAY #90 tab 08/05/18 bupropion HCl 150 mg 24 hr tablet, 150 mg PO QAM #30 tab 04/11/19 extended release aspirin 325 mg PO DAILY #10 tab 08/01/19 gabapentin 300 mg PO BID #30 cap 08/01/19 ondansetron HCl [Zofran] 4 mg PO BID-TID PRN #7 tab 08/01/19 oxycodone 10 mg PO Q4-6H PRN #60 tab 08/01/19 Allergies Allergy/AdvReac Type Severity Reaction Status Date / Time No Known Drug Allergies Allergy Verified 08/01/19 10:25 PFS Medical History (Updated 08/08/19 @ 13:58 by Leonora Ye RN) Abnormal Pap smear of cervix (Chronic ~08/2014) Ankle fracture, left (Acute 07/29/19) Methamphetamine abuse (Chronic) Vaginal delivery (Resolved) Surgical History (Updated 07/31/19 @ 08:42 by Alyssa Frankel RN) Hx of breast biopsy (Acute 06/23/19) Family History Mother Breast cancer Social History household members: children Smoking Status: Current every day smoker alcohol intake: never substance use type: does not use Social History (Reviewed 09/03/19 @ 17:36 by BRIE Choudhury household members: children Smoking Status: Current every day smoker alcohol intake: never substance use type: does not use Exam Initial Vital Signs Initial Vital Signs: Vital Signs Temperature 97.8 F 08/08/19 12:36 Pulse Rate 108 H 08/08/19 12:36 Respiratory Rate 18 08/08/19 12:36 Blood Pressure 136/92 H 08/08/19 12:36 Pulse Oximetry 95 08/08/19 12:36 Course Vital Signs Vital signs: Vital Signs - 8 hr 08/08/19 12:36 Temperature 97.8 F Pulse Rate 108 H Respiratory Rate 18 Blood Pressure 136/92 H Pulse Oximetry 95 Discharge Plan Departure Patient Disposition: Left Without Being Seen Clinical Impression: Patient left without being seen Discharge Date/Time: 08/08/19 13:56
== END 2019-08-08 13:56 | disposition left against medical advice (07) ==
PROVIDERS: Emergency Provider Emergency Medicine; PCP Student in an Organized Health Care Education/Training Program
DX: R10.9 Unspecified abdominal pain (principal)
CPT/HCPCS: 99282

== ENCOUNTER 2019-08-22 09:17 | Day surgery (SDC) | payer OTHER, SELFPAY ==
[2019-08-21 08:18] VITALS: BMI 32.8
[2019-08-22] VITALS (15 sets, daily range): BP systolic 113–168; BP diastolic 64–107; PULSE 87–107; RESP 10–19; TEMP 36.2–36.8; O2SAT 94–99; BMI 32.8
--- NOTE | 2019-08-22 | DI.RAD.S_ITS ---
PROCEDURE: XR ANKLE LT MIN 3V INDICATIONS: ORIF LEFT ANKLE TECHNIQUE: Single intraoperative fluoroscopic views of the ankle were acquired. COMPARISON: [facility], ANDREW, XR ANKLE LT MIN 3V, 08/01/2019, 14:26. FINDINGS: Intraoperative fluoroscopic image of left ankle shows posterior fixation pin placement in through patient's known posterior malleolus fracture site. IMPRESSION: Fluoroscopy guidance was provided intraoperatively for ORIF of posterior malleolus. Dictated by: Aaron Black M.D. on 08/22/2019 at 15:00 Approved by: Aaron Black M.D. on 08/22/2019 at 15:02
--- NOTE | 2019-08-22 09:40 | PM.PREOP ---
Pre-operative Note Interval Note History & Physical reviewed/Exam performed by Physician: Yes Changes to H&P: No
[2019-08-22] MEDS: LACTATED RINGERS 1,000 ML 42 ML IV ×2 (09:52→13:07)
--- NOTE | 2019-08-22 10:42 | PM.OP.1 ---
Operative Date/Time/Diagnoses Date of procedure: 08/22/19 Time of procedure: 11:45 Pre-op diagnosis: Closed trimalleolar ankle fracture left, Closed posterior pilon fracture variant, left Post-op diagnosis: same Procedure & Clinicians Procedure: Staged Open reduction internal fixation left tibial pilon and fibula fracture CPT code 34841 Removal external fixator CPT code 94927 This procedure was performed with the modifier 58 for staged scheduled definitive fixation after previous spanning external fixator placement. The Physician fire control assistant was utilized for this surgery due to the requirement for prone positioning, dual posterior medial and posterior lateral approaches Same procedure as scheduled: Yes Indications: Patient is a 43-year-old female with a left trimalleolar ankle fracture, posterior pilon fracture dislocation variant with the significant posterior joint comminution. The patient underwent spanning external fixation for her soft tissue injury including multiple fracture blisters. Her skin has now reapplied Nay I state and she is appropriate for definitive fixation. The patient has been indicated for staged open reduction internal fixation and external fixation removal. The risks benefits and alternatives to surgery were discussed with the patient in detail. The risks and benefits of the procedure have been discussed with the patient even opportunity to ask questions. The risks of surgery include but are not limited to infection, malunion, nonunion, persistence of pain, damage to nerves and blood vessels, posttraumatic arthritis, DVT, PE, cardiopulmonary complications and . The patient expressed a thorough understanding of the risks and benefits of surgery and has elected to proceed. Consent was signed in the office. The patient understands the importance of elevation above the heart level for the 1st 2 weeks after surgery. Patient will be nonweightbearing a 6-10 weeks after surgery. Surgeon: Joanne Obrien Supervisor Sewing Room: Rosario Green Anesthesia Type: General and Peripheral nerve block Operative Notes Findings: Posterior medial incision was made. A unstable posterior medial malleolus fragment as well as separate anterior distal medial malleolus fragment and were encountered. The posterior tibialis tendon was protected and retracted anteriorly out of its groove. The posterior medial fragment was mobilized. Additionally posterior lateral incision was made the unstable lateral malleolus fracture was encountered as well as the posterior lateral fragment of the a posterior pilon fracture was encountered mobilized and then reduced. The anterior distal medial malleolus fragment was pinned and then fixed with 4 0 cannulated screws additionally the medial malleolus a posterior peel on fragment was open booked the articular surface was evaluated and a loose small articulate piece that was incarcerated in the syndesmosis was removed. Care was taken to preserve the posterior tib-fib ligament. The posterior peel on fragments medial and lateral was then reduced and pinned and stabilized with a cannulated screws with washers followed by a 5 hole 1/3 tubular plate posterior medially. A 8 hole 1/3 tubular plate was used and a posterior lateral fashion along the lateral malleolus. Syndesmosis was stressed under fluoroscopy and felt to be stable. Closure Type: primary Specimen(s): none sent Prosthetic devices, grafts, tissues, transplants, or devices: Arthrex 4.0 cannulated screws Arthrex 5 hole 1/3 tubular plate Arthrex 8 hole 1/3 tubular plate 3.5 cortical and locking screws Estimated Blood Loss (mL): 25 Blood products transfused: none Tourniquet time (min): 130 Procedure in detail: Patient was seen in the preoperative area. Site of surgery was marked and informed consent confirmed. Final questions were answered. The patient was then taken to the block room by the anesthesia team and a peripheral nerve block was placed for postop pain control. The patient was then brought into the operating room. The patient was given anesthetic on the stretcher and once this successful levels of anesthesia were obtained the patient underwent removal of the tibial pins for the external fixator. Of note the patient's soft tissues had resolved appropriately. Skin wrinkles were present and the blisters were re-epithelialization. Once these were removed a well-padded thigh tourniquet was placed and the patient was then positioned prone on the operative table. All bony prominences were well padded. The surgical leg was prepped and draped in the standard sterile fashion. An SCD was on the contralateral lower extremity. A formal time-out procedure was completed confirming the patient's side and site of surgery and administration of preoperative antibiotics. All were in agreement. An Esmarch bandage utilized to exsanguinate the limb and the tourniquet was raised on the thigh to 250 mm of mercury. A 1st a posterior medial incision was made over the course of the posterior tibialis tendon this was taken down to the level of the retinaculum and then this was opened and tagged for later repair. Posterior tibialis tendon was retracted anterior out of its groove. The posterior medial fracture line split just along the medial malleolus and then posterior to the groove through the posterior joint. This was mobilized there was also a separate more distal anterior fracture of the medial malleolus that was exposed and pinned. The far lateral part of the posterior malleolus and peel on was not accessible through the posterior medial approach therefore a posterior lateral approach was also made this was made just to the anterior side of fpc between the Achilles and the fibula and the dissection was carefully carved distally for additional exposure. This was taken down through the skin subcutaneous tissues. The deep fascia was opened and the flexor hallux longus exposed. The FHL was retracted medially and the peroneals laterally to expose the posterior fibula and tibia. The posterior lateral posterior malleolus piece was identified and then mobilized with care working back and forth through the posterior medial and posterior lateral incisions the posterior part of the tibia was open booked and the incarcerated fragments were visualized and removed this was a very thin piece of loose articular surface. Once this was completed I was able to mobilize the posterior fracture fragments back down to the joint and pinned these in place. Multiplanar fluoroscopy was used to check the reduction and once this was satisfactory this was stabilized with 4 0 cannulated lag screws with washers a posterior laterally and posterior medially. Additionally the posterior medial larger fragment was stabilized with a posterior medial buttress type plate with a 3 5 cortical screws. A cancellous screw was used distally but was loose and later exchanged for a locking screw to be lower profile for good fixation. Additionally the fibula was mobilized and reduced and then fixated with a 8 hole 1/3 tubular plate. Cortical screws were used proximally in the shaft and a locking screw was used distally to reduce the prominence and for stable fixation. Multiple plane fluoroscopy confirmed appropriate reduction and fixation hardware placement. Tourniquet was let down after 2 hours and 10 minutes and hemostasis was achieved. The wounds were irrigated with copious irrigation and closed in a layered fashion with 2 O Vicryl deep in the tendon sheath and 4 0 Monocryl subcutaneous and the skin was closed with 3 O nylon suture. Xeroform gauze and a sterile bulky dressing with Harper cotton and a half U splint with posterior slab were applied. The patient was then woken from anesthesia and taken to the recovery room in good condition. There no immediate complications from this procedure. All counts were correct. Complications: none Post-operative Condition: stable Disposition: PACU Plan for aftercare: Nonweightbearing left lower extremity. Elevate above the heart level for the 1st 2 weeks after surgery. Left oxycodone for pain management. Patient also had preoperative block placed by the anesthesia team for postoperative pain control. Patient will use Xarelto starting postoperative day 1 for DVT prophylaxis times 14 days and then will transition to aspirin
--- NOTE | 2019-08-22 11:01 | SUR.PREOP ---
1101 To block room, O2 at 2LNP, continuous VS monitoring in prep for block.
--- NOTE | 2019-08-22 11:23 | SUR.PREOP ---
LLE nerve block by Dr. Edmonds. Pt on continuous VS and heart monitor, tolerated well. See rhythm and VS strip attached to paper. Pt responsive and oriented.
[2019-08-22] MEDS: CEFAZOLIN 2 GM/100 ML FROZ.PIGGY IV (11:25)
--- NOTE | 2019-08-22 12:24 | SUR.OPER ---
Prone on padded OR bed, head in foam head support, gel chest rolls, gel pad under knees, pillow under lower legs, toes free of pressure, arms secured on padded arm boards at <90 degrees abduction. Safety belt at thigh.
[2019-08-22] MEDS: BUPIVACAINE 0.25% (PF) VIAL 30 ML INJ (14:45)
[2019-08-22] MEDS: ONDANSETRON 4 MG/2 ML INJ IV (15:39)
[2019-08-22] MEDS: fentaNYL 100 MCG/2 ML INJ 50 MCG IV ×4 (15:49→16:51)
--- NOTE | 2019-08-22 16:03 | SUR.PHASEI ---
Post op Phase 1 note: VSS, O2 sat WNL on RA. patient complains of 8/10 pain. Medicated with IV Fentanyl per orders. Nausea resolving. Tolerating ice chips.
[2019-08-22] MEDS: OXYCODONE IR 5 MG TABLET PO (16:53)
--- NOTE | 2019-08-22 17:04 | SUR.PHASEI ---
Dr Edmonds notified bp 150s over 106. Discussed BP similar to admit. OK for patient to discharge per MD.
[2019-08-22] MEDS: OXYCODONE/ACETAMINOPHEN 5/325 TABLET 1 TAB PO (17:23)
--- NOTE | 2019-08-22 17:34 | SUR.PHASEII ---
Report given to
== END 2019-08-22 18:19 | disposition home or self-care (01) ==
PROVIDERS: PCP Student in an Organized Health Care Education/Training Program; Visit Provider Orthopaedic Surgery Foot and Ankle Surgery
PROC: (CPT 27828; principal; 2019-08-22 11:00)
PROC: (CPT 27828; 2019-08-22 11:00)
DX: S82.852A Displaced trimalleolar fracture of left lower leg, initial encounter for closed fracture (principal); G89.18 Other acute postprocedural pain
CPT/HCPCS: 27828; 20694; 64445; 64450; 73610; 76000; J0690; J1100; J2250; J2405; J2704; J3010

== ENCOUNTER → 2020-01-22 12:44 | Outpatient (CLI) | payer OTHER, MEDICAID, SELFPAY ==
--- NOTE | 2020-01-22 12:45 | DI.US.S_ITS ---
LIMITED ULTRASOUND OF LEFT BREAST: 01/22/2020 CLINICAL: 6 month follow-up of cysts. Comparison is made to exams dated: 01/22/2020 mammogram, 06/23/2019 mammogram, 06/02/2019 ultrasound, 06/02/2019 mammogram, 12/03/2018 ultrasound, and 12/03/2018 mammogram - [facility]. Color flow and real-time ultrasound of the left breast 3 o'clock and 12 o'clock regions were performed on the areas of interest. There is a 0.8 cm x 0.5 cm x 0.7 cm oval cyst in the left breast at 3 o'clock middle depth. This oval cyst is hypoechoic with a well-defined boundary and internal echoes. This abnormality is not significantly changed and correlates with mammography findings. Color flow imaging demonstrates that there is no vascularity present. There also is a stable benign 0.6 cm x 0.5 cm x 0.6 cm oval simple cyst in the left breast at 12 o'clock middle depth. This oval simple cyst is anechoic with a well-defined boundary. Color flow imaging demonstrates that there is no vascularity present. IMPRESSION: PROBABLY BENIGN The 0.8 cm x 0.5 cm x 0.7 cm oval cyst in the left breast at 3 o'clock middle depth is consistent with a complicated cyst and is probably benign. A follow-up ultrasound in 6 months is recommended. The stable 0.6 cm x 0.5 cm x 0.6 cm oval simple cyst in the left breast at 12 o'clock middle depth is benign. A follow-up ultrasound in 6 months is recommended to demonstrate stability. This exam was interpreted at Station ID: [id number]. Electronically Signed By: Chago enamorado/orion:01/22/2020 13:59:14 letter sent: Followup Recommended Ultrasound BI-RADS: 3 Probably benign
--- NOTE | 2020-01-22 12:45 | DI.MG.S_ITS ---
BILATERAL DIGITAL DIAGNOSTIC MAMMOGRAM 3D/2D SHORT-TERM FOLLOW-UP: 01/22/2020 CLINICAL: Patient returns for a 6 month follow up of the left breast post biopsy, due for bilateral imaging. Comparison is made to exams dated: 06/23/2019 mammogram, 06/23/2019 ultrasound biopsy, 06/02/2019 mammogram, and 11/11/2018 mammogram - [facility]. The tissue of both breasts is heterogeneously dense. This may lower the sensitivity of mammography. There is an oval equal density cyst with an obscured and circumscribed margin in the left breast at 3 o'clock middle depth. This is not significantly changed. No other significant masses, calcifications, or other findings are seen in either breast. IMPRESSION: INCOMPLETE: NEEDS ADDITIONAL IMAGING EVALUATION The oval equal density cyst in the left breast is indeterminate. An ultrasound is recommended. This exam was interpreted at Station ID: [id number]. NOTE: For mammograms, a report in lay terms will be sent to the patient. Approximately 15% of breast malignancies will not be visualized mammographically. In the management of a palpable breast mass, a negative mammogram must not discourage biopsy of a clinically suspicious lesion. Electronically Signed By: Chago enamorado/orion:01/22/2020 13:38:10 ACR BI-RADS Category 0: Incomplete [id number]
== END ==
PROVIDERS: PCP Student in an Organized Health Care Education/Training Program; Referring Provider Student in an Organized Health Care Education/Training Program; Visit Provider Student in an Organized Health Care Education/Training Program
DX: R92.8 Other abnormal and inconclusive findings on diagnostic imaging of breast (principal); N60.02 Solitary cyst of left breast
CPT/HCPCS: 76642; 77066; G0279

== ENCOUNTER → 2020-06-02 13:12 | Outpatient (CLI) | payer OTHER, MEDICAID, SELFPAY ==
[2020-06-02 13:51] LABS: Alanine Aminotransferase 19 IU/L (<35); Albumin 4.8 g/dL (3.5-5.0); Albumin Globulin Ratio 1.3 (1.0-2.8); Alkaline Phosphatase 121 U/L (38-126); Aspartate Aminotransferase 32 IU/L (14-36); BUN Creatinine Ratio 15.4 (6-22); Bilirubin Total 0.2 mg/dL (0.2-1.3); Blood Urea Nitrogen 10 mg/dL (7-17); C-Reactive Protein Quant < 0.5 mg/dL (<1.0); Calcium 9.5 mg/dL (8.4-10.2); Carbon Dioxide 28 mmol/L (22-32); Chloride 101 mmol/L (98-107); Estimated Glomerular Filt Rate > 60.0 mL/min (>60); Globulin 3.6 g/dL (1.7-4.1); Glucose 95 mg/dL (70-100); HEMOLYSIS < 15 (0-50); Potassium 4.1 mmol/L (3.4-5.1); Sodium 138 mmol/L (137-145); Total Protein 8.4 g/dL (6.3-8.2)
[2020-06-02 13:52] LABS: Erythrocyte Sedimentation Rate 25 MM/HR (0-20)
== END ==
PROVIDERS: PCP Student in an Organized Health Care Education/Training Program; Referring Provider Physician Assistant; Visit Provider Physician Assistant
DX: R42 Dizziness and giddiness (principal)
CPT/HCPCS: 36415; 80053; 85651; 86140

== ENCOUNTER → 2020-10-04 10:45 | Outpatient (CLI) | payer OTHER, MEDICAID, SELFPAY ==
--- NOTE | 2020-10-04 | DI.US.S_ITS ---
LIMITED ULTRASOUND OF LEFT BREAST: 10/04/2020 CLINICAL: Patient returns today to evaluate focal asymmetries in the left breast. Comparison is made to exams dated: 01/22/2020 ultrasound, 01/22/2020 mammogram, 06/23/2019 mammogram, 06/23/2019 ultrasound biopsy, 06/02/2019 ultrasound, and 06/02/2019 mammogram - [facility]. Color flow ultrasound of the left breast was performed. Mcneill scale images of the real-time examination were reviewed. There is a 0.8 cm x 0.5 cm x 0.7 cm oval cyst in the left breast at 3 o'clock middle depth. This oval cyst is hypoechoic with a well-defined boundary and internal echoes. This abnormality is not significantly changed and correlates with mammography findings. There also is a 0.3 cm x 0.3 cm x 0.3 cm oval cyst in the left breast at 12 o'clock middle depth 5 cm from the nipple. This oval cyst is hypoechoic. This correlates as an incidental finding. This lesion is adjacent to the prior biopsy clip. Additionally, there is a benign 0.6 cm x 0.5 cm x 0.6 cm oval simple cyst in the left breast at 12 o'clock middle depth. This oval simple cyst is anechoic with a well-defined boundary. This abnormality is not significantly changed. IMPRESSION: PROBABLY BENIGN The 0.8 cm x 0.5 cm x 0.7 cm oval cyst in the left breast at 3 o'clock middle depth is consistent with a complicated cyst and is probably benign. The 0.3 cm x 0.3 cm x 0.3 cm oval cyst in the left breast at 12 o'clock middle depth is probably benign. The 0.6 cm x 0.5 cm x 0.6 cm oval simple cyst in the left breast at 12 o'clock middle depth is benign. A follow-up mammogram and an ultrasound in 6 months is recommended to demonstrate stability. This exam was interpreted at Station ID: [id number]. Electronically Signed By: Ranjit khalil/orion:10/04/2020 12:42:10 letter sent: Followup Recommended Ultrasound BI-RADS: 3 Probably benign
== END ==
PROVIDERS: PCP Student in an Organized Health Care Education/Training Program; Referring Provider Student in an Organized Health Care Education/Training Program; Visit Provider Registered Nurse
DX: R92.8 Other abnormal and inconclusive findings on diagnostic imaging of breast (principal); N60.02 Solitary cyst of left breast
CPT/HCPCS: 76642

== ENCOUNTER → 2020-11-11 11:29 | Outpatient (CLI) | payer OTHER, MEDICAID, SELFPAY ==
[2020-11-11 12:20] LABS: COVID19 -Nasal RAPID Negative (Negative)
== END ==
PROVIDERS: PCP Student in an Organized Health Care Education/Training Program; Visit Provider Registered Nurse
DX: R05 Cough (principal); R06.02 Shortness of breath; R19.7 Diarrhea, unspecified; R43.0 Anosmia; R43.2 Parageusia
CPT/HCPCS: 87635

== ENCOUNTER → 2020-11-11 11:54 | Outpatient (CLI) | payer OTHER, MEDICAID, SELFPAY ==
--- NOTE | 2020-11-11 11:57 | DI.RAD.S_ITS ---
PROCEDURE: XR CHEST 2V INDICATIONS: sob TECHNIQUE: 2 views of the chest were acquired. COMPARISON: None. FINDINGS: Surgical changes and devices: None. Lungs and pleura: Lungs are clear. No pleural effusions or pneumothorax. Mediastinum: Mediastinal contours are normal. Heart size is normal. Bones and chest wall: No suspicious bony abnormalities. Soft tissues appear unremarkable. IMPRESSION: No acute cardiopulmonary disease. Dictated by: Rhina Sharma M.D. on 11/11/2020 at 13:39 Approved by: Rhina Sharma M.D. on 11/11/2020 at 13:40
== END ==
PROVIDERS: PCP Student in an Organized Health Care Education/Training Program; Referring Provider Registered Nurse; Visit Provider Registered Nurse
DX: R06.02 Shortness of breath (principal); R05 Cough; R19.7 Diarrhea, unspecified; R43.0 Anosmia; R43.2 Parageusia
CPT/HCPCS: 71046; 87635

== ENCOUNTER 2021-01-25 11:09 | Emergency (ER) | payer OTHER, MEDICAID, SELFPAY ==
[2021-01-25 11:41] VITALS: BP 194/108; PULSE 85; RESP 16; TEMP 36.7; O2SAT 96; BMI 33.3
[2021-01-25 12:03] LABS: Bacteria Urine None Seen; RBC Urine None Seen (0-5/HPF); WBC Urine None Seen (0-5/HPF)
[2021-01-25 12:05] LABS: Appearance Urine UA CLEAR; Bilirubin Urine UA NEGATIVE (NEGATIVE); Color Urine UA YELLOW; Glucose Urine UA NEGATIVE (Negative); Ketones Urine UA NEGATIVE (NEGATIVE); Leukocyte Esterase Urine UA NEGATIVE (NEGATIVE); Nitrite Urine UA NEGATIVE (Negative); Occult Blood Urine UA NEGATIVE (Negative); Protein Urine UA NEGATIVE (Negative); Specific Gravity Urine UA 1.015 (1.000-1.035); Urobilinogen Urine UA 0.2 E.U./dL (0.2)
[2021-01-25 12:05] LABS: Pregnancy Test Urine Negative (Negative)
[2021-01-25 12:25] LABS: Culture Indicated Urine Cult Not Indicated; Urine Comments Microscopic Normal
[2021-01-25] MEDS: ONDANSETRON 4 MG/2 ML INJ IV (14:53)
[2021-01-25 15:10] LABS: Add Manual Diff / Slide Review NO; Basophils Absolute Auto 0 /uL (0-100); Basophils Percent Auto 0.5 % (0-2); Eosinophils Absolute Auto 100 /uL (0-450); Eosinophils Percent Auto 0.8 % (2-4); Hematocrit 39.3 % (36-46); Hemoglobin 13.3 g/dL (12.0-16.0); Lymphocytes Absolute Auto 2500 /uL (1100-4500); Lymphocytes Percent Auto 32.3 % (25-40); Mean Corpuscular Hemoglobin 29.6 PG (26-34); Mean Corpuscular Volume 87.2 fL (80-100); Monocytes Absolute Auto 500 /uL (0-900); Monocytes Percent Auto 5.9 % (3-14); Neutrophils Absolute Auto 4700 /uL (1500-7000); Neutrophils Percent Auto 60.5 % (50-75); Platelet Count 347 X10^3/uL (150-400); Red Blood Cell Count 4.51 X10^6/uL (4.0-5.2); Red Cell Distribution Width 14.2 % (11.6-14.8); White Blood Cell Count 7.8 X10^3/uL (4.5-11.0)
--- NOTE | 2021-01-25 15:15 | DI.CT.S_ITS ---
PROCEDURE: CT ABDOMEN PELVIS W CON INDICATIONS: rlq, flank pain TECHNIQUE: After the administration of intravenous contrast, 5 mm thick sections acquired from the diaphragm to the symphysis. 5 mm coronal and sagittal reformats were acquired. For radiation dose reduction, the following was used: automated exposure control, adjustment of mA and/or kV according to patient size. COMPARISON: None. FINDINGS: Image quality: Excellent. ABDOMEN: Lung bases: Lung bases are clear. Heart size is normal. Small hiatal hernia. Solid organs: Liver is normal in size and enhancement. Gallbladder his normal. Biliary system is non dilated. Pancreas enhances normally. Spleen is normal in size. There is a 2 cm cyst in the anterior tip of the spleen. No adrenal nodules. Kidneys demonstrate normal size and enhancement, without hydronephrosis. Peritoneum and bowel: There is mild colonic wall thickening involving the splenic flexure, descending and sigmoid colon suggesting mild colitis. Appendix is normal. Bowel loops demonstrate normal caliber. No free fluid or air. Nodes and vessels: No retroperitoneal or mesenteric adenopathy by size criteria. Aorta and inferior vena cava are normal in size. Miscellaneous: No ventral hernias. PELVIS: Genitourinary: Uterus is normal. There are small ovarian and paraovarian cysts. Left ovary is normal. No free fluid in pelvis. Bladder wall thickness is normal. Miscellaneous: No inguinal hernias or adenopathy. Bones: No suspicious bony lesions. No vertebral body compression fractures. IMPRESSION: 1. Normal appendix. 2. Suspect mild colitis involving the splenic flexure, descending and sigmoid colon. 3. Small ovarian and paraovarian cysts are present. 4. Dictated by: Rhina Sharma M.D. on 01/25/2021 at 16:32 Approved by: Rhina Sharma M.D. on 01/25/2021 at 16:42
[2021-01-25 15:18] LABS: Alanine Aminotransferase 20 IU/L (<35); Albumin 4.9 g/dL (3.5-5.0); Albumin Globulin Ratio 1.3 (1.0-2.8); Alkaline Phosphatase 83 U/L (38-126); Amylase 89 U/L (30-110); Aspartate Aminotransferase 30 IU/L (14-36); BUN Creatinine Ratio 11.3 (6-22); Bilirubin Total 0.2 mg/dL (0.2-1.3); Blood Urea Nitrogen 9 mg/dL (7-17); Calcium 9.7 mg/dL (8.4-10.2); Carbon Dioxide 27 mmol/L (22-32); Chloride 103 mmol/L (98-107); Estimated Glomerular Filt Rate > 60.0 mL/min (>60); Globulin 3.7 g/dL (1.7-4.1); Glucose 103 mg/dL (70-100); HEMOLYSIS < 15 (0-50); Lactate (Lactic Acid) 0.7 mmol/L (0.7-2.1); Lipase 71 U/L (23-300); Potassium 3.9 mmol/L (3.4-5.1); Sodium 137 mmol/L (137-145); Total Protein 8.6 g/dL (6.3-8.2)
[2021-01-25] MEDS: SODIUM CHLORIDE 0.9% 1,000 ML 1000 ML IV (15:35)
[2021-01-25] MEDS: KETOROLAC 60 MG/2 ML VIAL 30 MG IV (16:14)
[2021-01-25 16:18] VITALS: BP 186/102; PULSE 86; O2SAT 98
[2021-01-25 16:30] VITALS: BP 173/102; PULSE 82; O2SAT 99
--- NOTE | 2021-01-25 16:35 | ED.FEMALEGU ---
HPI - Female Genitourinary <ELPIDIO Castano - Last Filed: 01/25/21 17:01> General Chief complaint: Urogenital-Female Stated complaint: lower right abd/back pain x4 days Time Seen by Provider: 01/25/21 14:22 Source: patient Mode of arrival: Ambulatory Limitations: no limitations History of Present Illness HPI Narrative: The patient is a 45-year-old female current everyday smoker with history of IBS who presents with a chief complaint of right-sided flank pain right around her right lower abdomen. She denies any fevers but complains of chills. Denies any nausea or vomiting. She feels like she cannot empty her bladder fully but denies any dysuria urgency or frequency. Denies any vaginal discharge. She has tried ibuprofen to feel better, but has not taken anything today. She has also tried Tylenol in the past. She wonders if it is a flare of her IBS. Related Data Home Medications Medication Instructions Recorded Confirmed multivitamin [Multiple Vitamins] 1 tab PO DAILY #0 04/30/17 10/07/20 [probiotic ] 1 tab PO DAILY #0 01/07/18 10/07/20 ascorbic acid (vitamin C) 1,000 mg PO QDAY #0 01/07/18 10/07/20 Previous Rx's Medication Instructions Recorded Prilosec OTC 20 mg PO QDAY #30 tab 07/17/17 bupropion HCl 300 mg 24 hr tablet, 300 mg PO QAM #90 tab 08/13/20 extended release buspirone 15 mg tablet 15 mg PO BID #180 tab 08/13/20 escitalopram oxalate 20 mg tablet 20 mg PO DAILY #90 tab 09/15/20 ondansetron 4 mg disintegrating 4 mg PO BID PRN #60 tab 10/07/20 tablet hydrocodone-acetaminophen [Spencer] 1 tab PO Q4-6H PRN #10 tab 01/25/21 prednisone 40 mg PO DAILY #10 tab 01/25/21 Allergies Allergy/AdvReac Type Severity Reaction Status Date / Time No Known Drug Allergies Allergy Verified 10/07/20 16:21 Review of Systems <ELPIDIO Castano - Last Filed: 01/25/21 17:01> Review of Systems Narrative: GENERAL: Denies chills, fatigue, malaise, fever, sweats. HEENT: Denies sinus pain, ear pain, sore throat, difficulty swallowing, dizziness. RESPIRATORY: Denies dyspnea, cough, wheezing, hemoptysis, sputum. CARDIOVASCULAR: Denies chest pain, palpitations, orthopnea, edema, GASTROINTESTINAL: See HPI : See HPI MUSCULOSKELETAL: denies weakness, joint pain, or bony pain SKIN: Denies rash, skin lesions, or other NEUROLOGIC: Denies weakness, headache, numbness, change in speech, confusion, seizures, incoordination. PSYCHIATRIC: No concerning psychosocial issues. 12 point review of systems is negative except for those stated above Patient History <ELPIDIO Castano - Last Filed: 01/25/21 17:01> Medical History Abnormal Pap smear of cervix (~08/2014) Ankle fracture, left (07/29/19) Benign cyst of breast Methamphetamine abuse Vaginal delivery Surgical History Hx of breast biopsy (06/23/19) Family History Mother Breast cancer Substance Use Type: former substance user Exam <ELPIDIO Castano - Last Filed: 01/25/21 17:01> Narrative Exam Narrative: GENERAL: This is a well-nourished, well-developed patient, in no acute distress HEAD: Atraumatic. Normocephalic. No temporal or scalp tenderness. EYES: Pupils equal round and reactive. Extraocular motions intact. No scleral icterus. No injection or drainage. ENT: Nose without bleeding, purulent drainage or septal hematoma. Wearing a mask Airway patent. NECK: Trachea midline. No JVD or lymphadenopathy. Supple, nontender, no meningeal signs. CARDIOVASCULAR: Regular rate and rhythm RESPIRATORY: Clear to auscultation. Breath sounds equal bilaterally. No wheezes, rales, or rhonchi. GASTROINTESTINAL: Abdomen soft, diffusely tender right lower quadrant, nondistended. No hepato-splenomegaly, or palpable masses. No guarding. Active bowel sounds all 4 quadrants EXTREMITIES: No clubbing, cyanosis, or edema. No joint tenderness, effusion, or edema noted. BACK: Nontender without deformity or crepitance. Slight tenderness to palpation right flank NEURO: AOx3. SKIN: No rash or erythema on visible skin Initial Vital Signs Initial Vital Signs: Vital Signs Temperature 98.0 F 01/25/21 11:41 Pulse Rate 85 01/25/21 11:41 Respiratory Rate 16 01/25/21 11:41 Blood Pressure 194/108 H 01/25/21 11:41 Pulse Oximetry 96 01/25/21 11:41 <Layo Vaz MD - Last Filed: 01/26/21 12:17> Initial Vital Signs Initial Vital Signs: Vital Signs Temperature 98.0 F 01/25/21 11:41 Pulse Rate 85 01/25/21 11:41 Respiratory Rate 16 01/25/21 11:41 Blood Pressure 194/108 H 01/25/21 11:41 Pulse Oximetry 96 01/25/21 11:41 Scores <ELPIDIO Castano - Last Filed: 01/25/21 17:01> GCS Jeanmarie coma scale eye opening: Spontaneous Jeanmarie coma scale verbal response: Orientated Jeanmarie coma scale motor response: Obey commands [place] coma scale total score: 15 Course <ELPIDIO Castano - Last Filed: 01/25/21 17:01> Orders Ordered: Discontinued Medications Sodium Chloride (Normal Saline 0.9%) 1,000 mls @ 1,000 mls/hr IV BOLUS ONE Stop: 01/25/21 16:20 Last Infusion: 01/25/21 17:21 Dose: 0 mls/hr Documented by: Admin: 01/25/21 15:35 Dose: 1,000 mls/hr Documented by: WENDY Ketorolac Tromethamine (Ketorolac 60 Mg/2 Ml Vial) 30 mg IV NOW ONE Stop: 01/25/21 15:39 Last Admin: 01/25/21 16:14 Dose: 30 mg Documented by: WENDY Ondansetron HCl (Ondansetron 4 Mg/2 Ml Inj) 4 mg IV NOW ONE Stop: 01/25/21 14:41 Last Admin: 01/25/21 14:53 Dose: 4 mg Documented by: WENDY Vital Signs Vital signs: Vital Signs - 8 hr 01/25/21 11:41 01/25/21 16:18 Temperature 98.0 F Pulse Rate 85 86 Respiratory Rate 16 Blood Pressure 194/108 H 186/102 H Pulse Oximetry 96 98 <Layo Vaz MD - Last Filed: 01/26/21 12:17> Orders Ordered: Discontinued Medications Sodium Chloride (Normal Saline 0.9%) 1,000 mls @ 1,000 mls/hr IV BOLUS ONE Stop: 01/25/21 16:20 Last Infusion: 01/25/21 17:21 Dose: 0 mls/hr Documented by: Admin: 01/25/21 15:35 Dose: 1,000 mls/hr Documented by: WENDY Ketorolac Tromethamine (Ketorolac 60 Mg/2 Ml Vial) 30 mg IV NOW ONE Stop: 01/25/21 15:39 Last Admin: 01/25/21 16:14 Dose: 30 mg Documented by: WENDY Ondansetron HCl (Ondansetron 4 Mg/2 Ml Inj) 4 mg IV NOW ONE Stop: 01/25/21 14:41 Last Admin: 01/25/21 14:53 Dose: 4 mg Documented by: WENDY Vital Signs Vital signs: Vital Signs - 8 hr 01/25/21 11:41 01/25/21 16:18 Temperature 98.0 F Pulse Rate 85 86 Respiratory Rate 16 Blood Pressure 194/108 H 186/102 H Pulse Oximetry 96 98 MDM - Female Genitourinary <CAMILLE Castano - Last Filed: 01/25/21 17:01> Lab Data Attestation: I reviewed the patient's lab results. Result diagrams: 01/25/21 14:56 01/25/21 14:56 Labs: Lab Results 01/25/21 01/25/21 01/25/21 Range/Units 11:47 11:50 14:56 WBC 7.8 (4.5-11.0) X10^3/uL RBC 4.51 (4.0-5.2) X10^6/uL Hgb 13.3 (12.0-16.0) g/dL Hct 39.3 (36-46) % MCV 87.2 (80-100) fL MCH 29.6 (26-34) PG MCHC 34.0 (30-36) % RDW 14.2 (11.6-14.8) % Plt Count 347 (150-400) X10^3/uL Neut % (Auto) 60.5 (50-75) % Lymph % (Auto) 32.3 (25-40) % Riley % (Auto) 5.9 (3-14) % Eos % (Auto) 0.8 L (2-4) % Baso % (Auto) 0.5 (0-2) % Neut # (Auto) 4700 (4495-1968) /uL Lymph # (Auto) 2500 (6641-4464) /uL Riley # (Auto) 500 (0-900) /uL Eos # (Auto) 100 (0-450) /uL Baso # (Auto) 0 (0-100) /uL Sodium (137-145) mmol/L Potassium (3.4-5.1) mmol/L Chloride (98-107) mmol/L Carbon Dioxide (22-32) mmol/L BUN (7-17) mg/dL Creatinine (0.52-1.04) mg/dL Estimated GFR (>60) mL/min BUN/Creatinine Ratio (6-22) Glucose (70-100) mg/dL Lactate (0.7-2.1) mmol/L Calcium (8.4-10.2) mg/dL Total Bilirubin (0.2-1.3) mg/dL AST (14-36) IU/L ALT (<35) IU/L Alkaline Phosphatase (38-126) U/L Total Protein (6.3-8.2) g/dL Albumin (3.5-5.0) g/dL Globulin (1.7-4.1) g/dL Albumin/Globulin Ratio (1.0-2.8) Amylase (30-110) U/L Lipase (23-300) U/L Urine Color Yellow Urine Appearance Clear Urine pH 8.0 (4.5-8.0) Ur Specific [place] 1.015 (1.000-1.035) Urine Protein Negative (Negative) Urine Glucose (UA) Negative (Negative) g/dL Urine Ketones Negative (NEGATIVE) Urine Occult Blood Negative (Negative) Urine Nitrate Negative (Negative) Urine Bilirubin Negative (NEGATIVE) Urine Urobilinogen 0.2 (0.2) E.U./dL Ur Leukocyte Esterase Negative (NEGATIVE) Urine RBC None seen (0-5/HPF) Urine WBC None seen (0-5/HPF) Urine Bacteria None seen (None) Ur Culture Indicated? Cult not indicated Micro UA Comment Microscopic normal Urine Test Negative (Negative) 01/25/21 01/25/21 Range/Units 14:56 14:56 WBC (4.5-11.0) X10^3/uL RBC (4.0-5.2) X10^6/uL Hgb (12.0-16.0) g/dL Hct (36-46) % MCV (80-100) fL MCH (26-34) PG MCHC (30-36) % RDW (11.6-14.8) % Plt Count (150-400) X10^3/uL Neut % (Auto) (50-75) % Lymph % (Auto) (25-40) % Riley % (Auto) (3-14) % Eos % (Auto) (2-4) % Baso % (Auto) (0-2) % Neut # (Auto) (9536-4879) /uL Lymph # (Auto) (9853-5996) /uL Riley # (Auto) (0-900) /uL Eos # (Auto) (0-450) /uL Baso # (Auto) (0-100) /uL Sodium 137 (137-145) mmol/L Potassium 3.9 (3.4-5.1) mmol/L Chloride 103 (98-107) mmol/L Carbon Dioxide 27 (22-32) mmol/L BUN 9 (7-17) mg/dL Creatinine 0.80 (0.52-1.04) mg/dL Estimated GFR > 60.0 (>60) mL/min BUN/Creatinine Ratio 11.3 (6-22) Glucose 103 H (70-100) mg/dL Lactate 0.7 (0.7-2.1) mmol/L Calcium 9.7 (8.4-10.2) mg/dL Total Bilirubin 0.2 (0.2-1.3) mg/dL AST 30 (14-36) IU/L ALT 20 (<35) IU/L Alkaline Phosphatase 83 (38-126) U/L Total Protein 8.6 H (6.3-8.2) g/dL Albumin 4.9 (3.5-5.0) g/dL Globulin 3.7 (1.7-4.1) g/dL Albumin/Globulin Ratio 1.3 (1.0-2.8) Amylase 89 (30-110) U/L Lipase 71 (23-300) U/L Urine Color Urine Appearance Urine pH (4.5-8.0) Ur Specific [place] (1.000-1.035) Urine Protein (Negative) Urine Glucose (UA) (Negative) g/dL Urine Ketones (NEGATIVE) Urine Occult Blood (Negative) Urine Nitrate (Negative) Urine Bilirubin (NEGATIVE) Urine Urobilinogen (0.2) E.U./dL Ur Leukocyte Esterase (NEGATIVE) Urine RBC (0-5/HPF) Urine WBC (0-5/HPF) Urine Bacteria (None) Ur Culture Indicated? Micro UA Comment Urine Test (Negative) MDM Narrative Medical decision making narrative: The patient is a 45-year-old female who presents with a chief complaint of right flank and right lower quadrant pain. She is well appearing, no leukocytosis, urine has no signs of infection. Given her significant pain to palpation, CT abdomen pelvis was obtained. This is concerning for colitis. I believe this is inflammatory at this point as she has no leukocytosis or fever. Will place patient on prednisone. However we discussed the possibility of infectious versus inflammatory colitis. Will give small prescription of hydrocodone. Patient states she has Zofran at home. I did discuss at length the ER return precautions including abdominal pain with fever, inability keep down fluids etcetera. Encouraged follow-up with primary care provider in the next few days. Patient has no questions or concerns upon discharge states understanding of return precautions as well as follow-up care. <Layo Vaz MD - Last Filed: 01/26/21 12:17> Lab Data Labs: Lab Results 01/25/21 01/25/21 01/25/21 Range/Units 11:47 11:50 14:56 WBC 7.8 (4.5-11.0) X10^3/uL RBC 4.51 (4.0-5.2) X10^6/uL Hgb 13.3 (12.0-16.0) g/dL Hct 39.3 (36-46) % MCV 87.2 (80-100) fL MCH 29.6 (26-34) PG MCHC 34.0 (30-36) % RDW 14.2 (11.6-14.8) % Plt Count 347 (150-400) X10^3/uL Neut % (Auto) 60.5 (50-75) % Lymph % (Auto) 32.3 (25-40) % Riley % (Auto) 5.9 (3-14) % Eos % (Auto) 0.8 L (2-4) % Baso % (Auto) 0.5 (0-2) % Neut # (Auto) 4700 (5796-4124) /uL Lymph # (Auto) 2500 (8257-3677) /uL Riley # (Auto) 500 (0-900) /uL Eos # (Auto) 100 (0-450) /uL Baso # (Auto) 0 (0-100) /uL Sodium (137-145) mmol/L Potassium (3.4-5.1) mmol/L Chloride (98-107) mmol/L Carbon Dioxide (22-32) mmol/L BUN (7-17) mg/dL Creatinine (0.52-1.04) mg/dL Estimated GFR (>60) mL/min BUN/Creatinine Ratio (6-22) Glucose (70-100) mg/dL Lactate (0.7-2.1) mmol/L Calcium (8.4-10.2) mg/dL Total Bilirubin (0.2-1.3) mg/dL AST (14-36) IU/L ALT (<35) IU/L Alkaline Phosphatase (38-126) U/L Total Protein (6.3-8.2) g/dL Albumin (3.5-5.0) g/dL Globulin (1.7-4.1) g/dL Albumin/Globulin Ratio (1.0-2.8) Amylase (30-110) U/L Lipase (23-300) U/L Urine Color Yellow Urine Appearance Clear Urine pH 8.0 (4.5-8.0) Ur Specific [place] 1.015 (1.000-1.035) Urine Protein Negative (Negative) Urine Glucose (UA) Negative (Negative) g/dL Urine Ketones Negative (NEGATIVE) Urine Occult Blood Negative (Negative) Urine Nitrate Negative (Negative) Urine Bilirubin Negative (NEGATIVE) Urine Urobilinogen 0.2 (0.2) E.U./dL Ur Leukocyte Esterase Negative (NEGATIVE) Urine RBC None seen (0-5/HPF) Urine WBC None seen (0-5/HPF) Urine Bacteria None seen (None) Ur Culture Indicated? Cult not indicated Micro UA Comment Microscopic normal Urine Test Negative (Negative) 01/25/21 01/25/21 Range/Units 14:56 14:56 WBC (4.5-11.0) X10^3/uL RBC (4.0-5.2) X10^6/uL Hgb (12.0-16.0) g/dL Hct (36-46) % MCV (80-100) fL MCH (26-34) PG MCHC (30-36) % RDW (11.6-14.8) % Plt Count (150-400) X10^3/uL Neut % (Auto) (50-75) % Lymph % (Auto) (25-40) % Riley % (Auto) (3-14) % Eos % (Auto) (2-4) % Baso % (Auto) (0-2) % Neut # (Auto) (7769-0177) /uL Lymph # (Auto) (4051-4248) /uL Riley # (Auto) (0-900) /uL Eos # (Auto) (0-450) /uL Baso # (Auto) (0-100) /uL Sodium 137 (137-145) mmol/L Potassium 3.9 (3.4-5.1) mmol/L Chloride 103 (98-107) mmol/L Carbon Dioxide 27 (22-32) mmol/L BUN 9 (7-17) mg/dL Creatinine 0.80 (0.52-1.04) mg/dL Estimated GFR > 60.0 (>60) mL/min BUN/Creatinine Ratio 11.3 (6-22) Glucose 103 H (70-100) mg/dL Lactate 0.7 (0.7-2.1) mmol/L Calcium 9.7 (8.4-10.2) mg/dL Total Bilirubin 0.2 (0.2-1.3) mg/dL AST 30 (14-36) IU/L ALT 20 (<35) IU/L Alkaline Phosphatase 83 (38-126) U/L Total Protein 8.6 H (6.3-8.2) g/dL Albumin 4.9 (3.5-5.0) g/dL Globulin 3.7 (1.7-4.1) g/dL Albumin/Globulin Ratio 1.3 (1.0-2.8) Amylase 89 (30-110) U/L Lipase 71 (23-300) U/L Urine Color Urine Appearance Urine pH (4.5-8.0) Ur Specific [place] (1.000-1.035) Urine Protein (Negative) Urine Glucose (UA) (Negative) g/dL Urine Ketones (NEGATIVE) Urine Occult Blood (Negative) Urine Nitrate (Negative) Urine Bilirubin (NEGATIVE) Urine Urobilinogen (0.2) E.U./dL Ur Leukocyte Esterase (NEGATIVE) Urine RBC (0-5/HPF) Urine WBC (0-5/HPF) Urine Bacteria (None) Ur Culture Indicated? Micro UA Comment Urine Test (Negative) Discharge Plan Departure Patient Disposition: Home Clinical Impression: Colitis Instructions: DI for Colitis Activity Restrictions/Additional Instructions: Thank you for trusting us with your care today. As discussed, your lab work came back well. However your CT scan is concerning for colitis. I have sent in steroids for you to help decrease the inflammation and help you feel better. I also sent in a small prescription of pain medication Please follow-up with primary care provider in the next few days. Please come back to the ER for acute concerns such as abdominal pain with fever inability keep down fluids etcetera Please be aware that the pain medicine as well as your home ondansetron can be constipating. You have been prescribed narcotic medications. While on these medications you cannot drive or operate heavy machinery. Additionally you cannot sign legal documents or perform any duties such as this. Many people get constipated on narcotic medications so it would be advisable to discuss stool softeners with the pharmacist when you corn picker your prescription. Prescriptions: New prednisone 20 mg tablet 40 mg PO DAILY Qty: 10 RF: 0 hydrocodone-acetaminophen [Spencer] 5-325 mg tablet 1 tab PO Q4-6H PRN (Reason: pain) Qty: 10 RF: 0 No Action multivitamin [Multiple Vitamins] 1 EACH tablet 1 tab PO DAILY Qty: 0 RF: 0 Prilosec OTC 20 MG tablet,delayed release (DR/EC) 20 mg PO QDAY Qty: 30 RF: 3 ascorbic acid (vitamin C) 500 MG tablet 1,000 mg PO QDAY Qty: 0 RF: 0 [probiotic ] 1 tab PO DAILY Qty: 0 RF: 0 bupropion HCl 300 mg tablet extended release 24 hr 300 mg PO QAM Qty: 90 RF: 1 buspirone 15 mg tablet 15 mg PO BID Qty: 180 RF: 1 escitalopram oxalate [Lexapro] 20 mg tablet 20 mg PO DAILY Qty: 90 RF: 1 ondansetron 4 mg tablet,disintegrating 4 mg PO BID PRN (Reason: nausea and vomiting) Qty: 60 RF: 1 Referrals: Javan Carrera MD [Primary Care Provider] - Stand Alone Forms: Work Release Note <Layo Vaz MD - Last Filed: 01/26/21 12:17> Cosign ED Attending Cosignature Attestation: I was immediately available in the department for consultation. This documentation has been reviewed and I agree with assessment and plan. Supervised by Layo Vaz MD
[2021-01-25 16:44] VITALS: PULSE 80; O2SAT 99
[2021-01-25 17:13] VITALS: BP 166/106
== END 2021-01-25 17:23 | disposition home or self-care (01) ==
PROVIDERS: Emergency Medicine; Emergency Provider Nurse Practitioner Family; PCP Student in an Organized Health Care Education/Training Program
DX: K52.9 Noninfective gastroenteritis and colitis, unspecified (principal)
CPT/HCPCS: 36415; 74177; 80053; 81001; 81025; 82150; 83605; 83690; 85025; 96361; 96374; 96375; 99281; 99284; J1885; J2405

== ENCOUNTER → 2021-02-14 09:19 | Outpatient (CLI) | payer OTHER, MEDICAID, SELFPAY ==
--- NOTE | 2021-02-14 09:20 | DI.US.S_ITS ---
ULTRASOUND OF LEFT BREAST: 02/14/2021 CLINICAL: 6 month follow-up of cysts. Comparison is made to exams dated: 02/14/2021 mammogram, 10/04/2020 ultrasound, 01/22/2020 ultrasound, 01/22/2020 mammogram, 06/23/2019 mammogram, and 06/23/2019 ultrasound [facility]. Color flow ultrasound of the left breast was performed. Mcneill scale images of the real-time examination were reviewed. There is a stable benign 0.8 cm x 0.5 cm x 0.7 cm mass in the left breast at 3 o'clock posterior depth 4 cm from the nipple, unchanged compared to 01/22/20. IMPRESSION: BENIGN There is no sonographic evidence of malignancy. The stable 0.8 cm x 0.5 cm x 0.7 cm mass in the left breast is stable for a year and is consistent with a complex cyst or a fibroadenoma and is benign. Return to annual mammogram screening schedule is recommended. This exam was interpreted at Station ID: [id number]. Electronically Signed By: Amaury Trinidad acr/:02/14/2021 12:33:52 letter sent: Normal Exam Ultrasound BI-RADS: 2 Benign
--- NOTE | 2021-02-14 09:20 | DI.MG.S_ITS ---
BILATERAL DIGITAL DIAGNOSTIC MAMMOGRAM 3D/2D SHORT-TERM FOLLOW-UP: 02/14/2021 CLINICAL: Short term follow up of the left breast, due for bilateral imaging. Comparison is made to exams dated: 01/22/2020 mammogram, 06/23/2019 mammogram, 06/02/2019 mammogram, and 11/11/2018 mammogram - [facility]. The tissue of both breasts is heterogeneously dense. This may lower the sensitivity of mammography. There is a stable oval asymmetry with a circumscribed margin in the left breast central to the nipple middle depth. No other significant masses, calcifications, or other findings are seen in either breast. IMPRESSION: INCOMPLETE: NEEDS ADDITIONAL IMAGING EVALUATION The stable oval asymmetry in the left breast is indeterminate. An ultrasound is recommended. This exam was interpreted at Station ID: [id number]. NOTE: For mammograms, a report in lay terms will be sent to the patient. Approximately 15% of breast malignancies will not be visualized mammographically. In the management of a palpable breast mass, a negative mammogram must not discourage biopsy of a clinically suspicious lesion. Electronically Signed By: Amaury Trinidad acr/:02/14/2021 12:25:40 letter sent: Need Ultrasound ACR BI-RADS Category 0: Incomplete 3340F
== END ==
PROVIDERS: PCP Student in an Organized Health Care Education/Training Program; Referring Provider Student in an Organized Health Care Education/Training Program; Visit Provider Student in an Organized Health Care Education/Training Program
DX: R92.8 Other abnormal and inconclusive findings on diagnostic imaging of breast (principal); N63.25 Unspecified lump in the left breast, overlapping quadrants
CPT/HCPCS: 76642; 77066; G0279

== ENCOUNTER → 2021-09-05 15:39 | Outpatient (CLI) | payer OTHER, SELFPAY ==
--- NOTE | 2021-09-05 15:41 | DI.RAD.S_ITS ---
PROCEDURE: XR ANKLE LT MIN 3V INDICATIONS: fall TECHNIQUE: 3 views of the ankle were acquired. COMPARISON: [facility], CR, XR ANKLE 3+ VIEWS LEFT, 09/04/2019, 9:49. [facility], CR, XR ANKLE LT MIN 3V, 08/22/2019, 13:12. FINDINGS: Bones: Postsurgical changes compatible with ORIF of left ankle trimalleolar fracture stable compared to prior exams. Orthopedic hardware is stable in position. Orthopedic hardware is intact. No lucencies at the bone-hardware interface. No acute fractures or dislocations. Ankle mortise is normally aligned. No suspicious bony lesions. Soft tissues: No tibiotalar joint effusion. Achilles tendon appears normal. IMPRESSION: 1. Status post ORIF of left ankle trimalleolar fracture. 2. No acute fracture. No acute osseous lesion. If symptoms and/or clinical suspicion for pathology persists, further assessment with repeat radiographs (7-10 days) or advanced imaging (e.g. CT, MRI or bone scan) should be considered. Dictated by: Ana Michel MD, PhD on 09/05/2021 at 16:13 Approved by: Ana Michel MD, PhD on 09/05/2021 at 16:15
--- NOTE | 2021-09-05 15:41 | DI.RAD.S_ITS ---
PROCEDURE: XR FOOT LT MIN 3V INDICATIONS: fall TECHNIQUE: 3 views of the foot were acquired. COMPARISON: None. FINDINGS: Bones: Partially visualized postsurgical changes compatible with ORIF of remote left ankle fracture. The 5th middle phalange is displaced laterally. No acute fractures. No suspicious bony lesions. Soft tissues: No tibiotalar joint effusion. Achilles tendon appears normal. IMPRESSION: 1. No acute fracture. If symptoms and/or clinical suspicion for pathology persists, further assessment with repeat radiographs (7-10 days) or advanced imaging (e.g. CT, MRI or bone scan) should be considered. 2. Fifth toe PIP joint dislocation. Dictated by: Ana Michel MD, PhD on 09/05/2021 at 16:16 Approved by: Ana Michel MD, PhD on 09/05/2021 at 16:18
--- NOTE | 2021-09-05 15:41 | DI.RAD.S_ITS ---
PROCEDURE: XR FOOT RT MIN 3V INDICATIONS: fall TECHNIQUE: 3 views of the foot were acquired. COMPARISON: None. FINDINGS: Bones: No fractures or dislocations. No suspicious bony lesions. Soft tissues: No tibiotalar joint effusion. Achilles tendon appears normal. IMPRESSION: No fracture. No osseous lesion. If symptoms and/or clinical suspicion for pathology persists, further assessment with repeat radiographs (7-10 days) or advanced imaging (e.g. CT, MRI or bone scan) should be considered. Dictated by: Ana Michel MD, PhD on 09/05/2021 at 16:18 Approved by: Ana Michel MD, PhD on 09/05/2021 at 16:18
--- NOTE | 2021-09-05 15:41 | DI.RAD.S_ITS ---
PROCEDURE: XR ANKLE RT MIN 3V INDICATIONS: fall TECHNIQUE: 3 views of the ankle were acquired. COMPARISON: None. FINDINGS: Bones: No fractures or dislocations. Ankle mortise is normally aligned. No suspicious bony lesions. Soft tissues: No tibiotalar joint effusion. Achilles tendon appears normal. IMPRESSION: No fracture. No osseous lesion. If symptoms and/or clinical suspicion for pathology persists, further assessment with repeat radiographs (7-10 days) or advanced imaging (e.g. CT, MRI or bone scan) should be considered. Dictated by: Ana Michel MD, PhD on 09/05/2021 at 16:15 Approved by: Ana Michel MD, PhD on 09/05/2021 at 16:16
== END ==
PROVIDERS: PCP Student in an Organized Health Care Education/Training Program; Referring Provider Nurse Practitioner Family; Visit Provider Nurse Practitioner Family
DX: S93.115A Dislocation of interphalangeal joint of left lesser toe(s), initial encounter; M25.571 Pain in right ankle and joints of right foot; M25.572 Pain in left ankle and joints of left foot; M79.671 Pain in right foot; M79.672 Pain in left foot; S82.852D Displaced trimalleolar fracture of left lower leg, subsequent encounter for closed fracture with routine healing; W19.XXXA Unspecified fall, initial encounter; X58.XXXD Exposure to other specified factors, subsequent encounter
CPT/HCPCS: 73610; 73630

== ENCOUNTER → 2022-01-02 09:03 | Outpatient (CLI) | payer OTHER, SELFPAY ==
--- NOTE | 2022-01-02 09:04 | DI.US.S_ITS ---
PROCEDURE: US PELVIC COMPLETE INDICATIONS: eval abnormal uterine bleeding TECHNIQUE: Real-time scanning was performed of the pelvic organs, with image documentation. Additional endovaginal scanning was necessary due to incomplete visualization of the adnexal and endometrial structures by transabdominal scanning. COMPARISON: None. FINDINGS: Uterus: Uterus is anteverted and normal in size at 6.6 x 4.6 x 4.2 cm. The myometrium is homogeneous. The endometrium measures 8.7 mm combined thickness. Nabothian cysts incidentally noted. Ovaries: The right ovary measures 3.4 x 1.3 x 1.0 cm. The left ovary measures 2.5 x 2.0 x 1.1 cm. The ovaries have a normal sonographic appearance. There is a 1.9 x 1.6 x 1.5 centimeter thick walled cyst with internal septations in the right adnexa. Left ovary is suboptimally visualized due to posterior position adjacent loops of bowel. No gross sonographic abnormality identified left adnexa. Other: No pathologic free abdominal or pelvic fluid. IMPRESSION: 1. Uterus sonographically normal. 2. 1.9 x 1.6 x 1.5 centimeter complex right adnexal cyst. Recommend follow-up ultrasound in 6-12 weeks to assess for resolution of the finding. 3. Left ovary suboptimally visualized. No gross sonographic abnormality identified in the left ovary. We strive to produce accurate, complete, and clear reports of imaging services. To assist us in improving patient care, this report was composed using standard report templates and voice recognition software. Therefore, it may contain abnormal punctuation, insertions and/or omissions. Occasional wrong-word or sound-alike substitutions may occur. Though we review the report and make efforts to correct it, we do recommend that the report be read carefully in proper context to recognize any text inaccuracies. Dictated by: Ana Michel MD, PhD on 01/02/2022 at 12:48 Approved by: Ana Michel MD, PhD on 01/02/2022 at 12:52
== END ==
PROVIDERS: PCP Student in an Organized Health Care Education/Training Program; Referring Provider Registered Nurse Diabetes Educator; Visit Provider Registered Nurse Diabetes Educator
DX: N93.9 Abnormal uterine and vaginal bleeding, unspecified (principal); N94.89 Other specified conditions associated with female genital organs and menstrual cycle
CPT/HCPCS: 76830; 76856

== ENCOUNTER → 2022-03-06 10:03 | Outpatient (CLI) | payer OTHER, SELFPAY ==
--- NOTE | 2022-03-06 10:06 | DI.US.S_ITS ---
PROCEDURE: US PELVIC COMPLETE INDICATIONS: 6 WEEK F/U US ABNORMAL BLEEDING/COMPLEX OVARIAN CYST TECHNIQUE: Real-time scanning was performed of the pelvic organs, with image documentation. Additional endovaginal scanning was necessary due to incomplete visualization of the adnexal and endometrial structures by transabdominal scanning. COMPARISON: [facility], US, US PELVIC COMPLETE, 01/02/2022, 9:18. FINDINGS: Uterus: Uterus is anteverted and normal in size at 8.5 x 4.4 x 4.0 cm. The myometrium is heterogeneous. The endometrium measures 3.3 mm combined thickness. Ovaries: The ovaries are difficult to visualize. The right ovary measures 1.9 x 1.0 x 1.2 cm and the left ovary measures 1.8 x 0.9 x 0.9 cm. There is a 1.7 x 0.6 x 1.1 cm hypoechoic right adnexal lesion which likely previously represented a complex cyst within the right ovary which measured 1.9 x 1.5 x 1.6 cm. The ovaries have a normal sonographic appearance. Less than 12 follicles can be seen in each ovary. No adnexal masses are seen. Other: No pathologic free abdominal or pelvic fluid. IMPRESSION: 1. Interval decrease in the size of the complex left ovarian cystic lesion which likely represents a hemorrhagic cyst. 2. No other sonographic abnormalities. We strive to produce accurate, complete, and clear reports of imaging services. To assist us in improving patient care, this report was composed using standard report templates and voice recognition software. Therefore, it may contain abnormal punctuation, insertions and/or omissions. Occasional wrong-word or sound-alike substitutions may occur. Though we review the report and make efforts to correct it, we do recommend that the report be read carefully in proper context to recognize any text inaccuracies. Dictated by: Mariajose Israel M.D. on 03/06/2022 at 12:16 Approved by: Mariajose Israel M.D. on 03/06/2022 at 12:19
== END ==
PROVIDERS: PCP Student in an Organized Health Care Education/Training Program; Referring Provider Registered Nurse Diabetes Educator; Visit Provider Registered Nurse Diabetes Educator
DX: N93.9 Abnormal uterine and vaginal bleeding, unspecified (principal); N83.292 Other ovarian cyst, left side
CPT/HCPCS: 76830; 76856

== ENCOUNTER → 2022-06-19 12:10 | Outpatient (CLI) | payer OTHER, SELFPAY ==
--- NOTE | 2022-06-19 | DI.US.S_ITS ---
PROCEDURE: US PELVIC COMPLETE INDICATIONS: FOLLOW-UP RIGHT OVARIAN HEMORRHAGIC CYST TECHNIQUE: Real-time scanning was performed of the pelvic organs, with image documentation. Additional endovaginal scanning was necessary due to incomplete visualization of the adnexal and endometrial structures by transabdominal scanning. COMPARISON: [facility], US, US PELVIC COMPLETE, 03/06/2022, 10:29. FINDINGS: Uterus: Uterus is anteverted and normal in size at 7.1 x 3.5 x 4.7 cm. The myometrium is homogeneous. The endometrium measures 3 mm combined thickness. Ovaries: The right ovary measures 1.9 x 0.9 x 2.7 cm, with a calculated ovarian volume of 2 cc. The left ovary was not visualized, likely due to bowel gas. The right ovary has a normal sonographic appearance. Less than 12 follicles are visualized in the right ovary. No adnexal masses are seen. Other: No pathologic free abdominal or pelvic fluid. IMPRESSION: 1. Interval resolution of the previously demonstrated complex right ovarian cyst, which likely represented a hemorrhagic cyst. 2. The left ovary was not visualized on this exam, likely due to bowel gas. 3. No adnexal mass visualized. We strive to produce accurate, complete, and clear reports of imaging services. To assist us in improving patient care, this report was composed using standard report templates and voice recognition software. Therefore, it may contain abnormal punctuation, insertions and/or omissions. Occasional wrong-word or sound-alike substitutions may occur. Though we review the report and make efforts to correct it, we do recommend that the report be read carefully in proper context to recognize any text inaccuracies. Dictated by: Ranjit Lock M.D. on 06/19/2022 at 14:17 Approved by: Ranjit Lock M.D. on 06/19/2022 at 14:54
--- NOTE | 2022-06-19 | DI.MG.S_ITS ---
BILATERAL DIGITAL SCREENING MAMMOGRAM 3D/2D WITH CAD: 06/19/2022 CLINICAL: Routine screening. Family history of breast cancer. Comparison is made to exams dated: 02/14/2021 mammogram, 01/22/2020 mammogram, and 11/11/2018 mammogram - [facility]. The tissue of both breasts is heterogeneously dense. This may lower the sensitivity of mammography. Current study was also evaluated with a Computer Aided Detection (CAD) system. There are benign cysts in both breasts. There also are benign post operative findings and biopsy clip in the left breast. No significant masses, calcifications, or other findings are seen in either breast. There has been no significant interval change. IMPRESSION: BENIGN There is no mammographic evidence of malignancy. A 1 year screening mammogram is recommended. Based on Tyrer-Cuzick model (a risk assessment model), the patient's lifetime risk is 36.6% and her 10 year risk is 8.5%. If a patient has an elevated risk, a more comprehensive evaluation should be considered and/or a referral to a genetic counselor. The [place] [employer], [place] [employer], and NCCN Guidelines advise the consideration of Breast MRI as an adjunct to screening mammography in patients whose Lifetime risk to develop breast cancer is 20% or higher. This exam was interpreted at Station ID: [id number]. NOTE: For mammograms, a report in lay terms will be sent to the patient. Approximately 15% of breast malignancies will not be visualized mammographically. In the management of a palpable breast mass, a negative mammogram must not discourage biopsy of a clinically suspicious lesion. Electronically Signed By: Mauro farooq/orion:06/19/2022 14:07:17 letter sent: Normal Exam ACR BI-RADS Category 2: Benign Finding(s) 3342F
== END ==
PROVIDERS: PCP Student in an Organized Health Care Education/Training Program; Referring Provider Student in an Organized Health Care Education/Training Program; Visit Provider Student in an Organized Health Care Education/Training Program
DX: Z80.3 Family history of malignant neoplasm of breast (principal); Z12.31 Encounter for screening mammogram for malignant neoplasm of breast; N83.201 Unspecified ovarian cyst, right side
CPT/HCPCS: 76830; 76856; 77063; 77067

== ENCOUNTER → 2022-12-07 11:19 | Outpatient (CLI) | payer OTHER, SELFPAY ==
[2022-12-07 13:41] LABS: Influenza A - CEPHEID Flu A NEGATIVE (NEGATIVE); Influenza B - CEPHEID Flu B NEGATIVE (NEGATIVE); Respiratory Syncytial Virus Negative (Negative)
[2022-12-07 13:52] LABS: COVID-19 CEPHEID 4-PLEX PCR Negative (Negative)
== END ==
PROVIDERS: PCP Student in an Organized Health Care Education/Training Program; Visit Provider Nurse Practitioner Family
DX: J06.9 Acute upper respiratory infection, unspecified (principal); Z20.822 Contact with and (suspected) exposure to COVID-19
CPT/HCPCS: 0241U

== ENCOUNTER → 2023-04-20 15:58 | Outpatient (CLI) | payer OTHER, SELFPAY ==
[2023-04-20 18:02] LABS: Free T4, Direct Thyroxine 0.84 ng/dL (0.78-2.19)
[2023-04-20 18:15] LABS: Follicle Stimulating Hormone 55.5 mIU/mL
[2023-04-20 18:16] LABS: Thyroid Stimulating Hormone 1.81 uIU/mL (0.47-4.68)
[2023-04-20 18:31] LABS: Estradiol, Total 23.1 pg/mL
== END ==
PROVIDERS: PCP Student in an Organized Health Care Education/Training Program; Referring Provider Obstetrics & Gynecology; Visit Provider Obstetrics & Gynecology
DX: N95.1 Menopausal and female climacteric states (principal)
CPT/HCPCS: 36415; 82670; 83001; 84439; 84443

== ENCOUNTER 2023-09-14 08:50 | Day surgery (SDC) | payer OTHER, SELFPAY ==
[2023-09-12 14:40] VITALS: BMI 31.1
--- NOTE | 2023-09-14 | DI.RAD.S_ITS ---
PROCEDURE: XR ANKLE LT 2V INDICATIONS: LT ARTHROPLASTY TECHNIQUE: 4 views of the ankle were acquired. COMPARISON: [facility], CR, XR ANKLE 3 VIEWS WEIGHT BEARING LEFT, 11/08/2022, 16:16. [facility], CR, XR ANKLE RT MIN 3V, 09/05/2021, 15:36. FINDINGS: 4 intraoperative fluoroscopic images of the left ankle were acquired. There are postsurgical changes of interval left tibiotalar joint arthroplasty. Stable postsurgical changes of prior ORIF of the distal left fibula. IMPRESSION: Intraoperative fluoroscopic support for left ankle arthroplasty. No gross hardware complication seen. Normal alignment. Please see separate procedure note for further details. Dictated by: Ladarius Guthrie M.D. on 09/14/2023 at 14:45 Approved by: Ladarius Guthrie M.D. on 09/14/2023 at 14:47
[2023-09-14 09:15] VITALS: BP 145/96; PULSE 17; RESP 96; TEMP 36.6; BMI 30.9
[2023-09-14] MEDS: LACTATED RINGERS 1,000 ML 42 ML IV (09:29)
--- NOTE | 2023-09-14 10:18 | P.HP_ITS ---
History of Present Illness History of Present Illness Date Patient Seen: 09/14/23 Time Patient Seen: 10:19 Date of Onset of Symptoms: 09/14/23 Chief complaint: SDC Narrative: The patient is a 47-year-old female who has a history of a trimalleolar ankle fracture dislocation and an injury sustained at work date of injury is 07/29/2019 claim #[id number] She underwent a staged external fixation and ORIF. She is gone on to posttraumatic arthritis. She would a staged partial hardware removal. She is been indicated for definitive treatment of her posttraumatic arthritis with total ankle arthroplasty. She also has a gastroc contracture. She will have a gastroc recession and total ankle arthroplasty. We discussed she may require additional malleolar stabilization procedures or ligament balancing procedures. Failed conservative treatment with bracing injections and anti-inflammatories. She is to wear an ASO brace every day. She has frequent sharp pains from her [id number] arthritis. She can not tolerate uneven ground or inclines. No history of infection. [facility] Medical History History of HPV infection Toe fracture, left Allergic rhinitis Carpal tunnel syndrome on both sides Benign cyst of breast Ankle fracture, left (07/29/19) Vaginal delivery Methamphetamine abuse Abnormal Pap smear of cervix (~08/2014) Surgical History History of open reduction and internal fixation (ORIF) procedure (08/22/19) Hx of breast biopsy (06/23/19) Family History Mother Breast cancer Social History household members: children Smoking Status: Current some day smoker alcohol intake: never substance use type: does not use Meds Home Medications and Allergies Home Medications Medication Instructions Recorded Confirmed Type multivitamin (Multiple Vitamins 1 tab PO DAILY ##0 04/30/17 09/14/23 History tablet) [probiotic ] 1 tab PO DAILY ##0 01/07/18 04/19/23 History ascorbic acid (vitamin C) 500 mg 1,000 mg PO QDAY ##0 01/07/18 09/14/23 History tablet pseudoephedrine HCl 30 mg tablet 30 mg PO Q4-6H PRN nasal 09/08/22 04/19/23 Rx (Sudafed) congestion #20 tabs ondansetron 4 mg disintegrating 4 mg PO BID PRN nausea and 10/04/22 09/14/23 Rx tablet vomiting #30 tabs estradiol 0.0375 mg/24 hr 1 patch transdermal 2XW #8 ea 05/21/23 09/14/23 Rx semiweekly transdermal patch (Beronica) progesterone micronized 100 mg 100 mg PO QAM #30 caps 05/21/23 09/14/23 Rx capsule (Prometrium) bupropion HCl 300 mg 24 hr tablet, 300 mg PO QAM #90 tabs 07/17/23 09/14/23 Rx extended release escitalopram oxalate 20 mg tablet 20 mg PO DAILY #90 tabs 08/28/23 09/14/23 Rx (Lexapro) buspirone 15 mg tablet See Rx Instructions .Route 09/10/23 09/14/23 Rx .COMPLEX #60 tabs oxycodone 5 mg tablet 5 mg PO Q4H PRN Pain (Scale Score 09/14/23 09/14/23 History 4-6) Allergies Allergy/AdvReac Type Severity Reaction Status Date / Time latex AdvReac Mild ITCHING Verified 09/14/23 09:09 Review of Systems Review of Systems ROS: Yes All systems reviewed with the patient and are negative except as otherwise documented Exam Vital Signs (past 8 hours): - 09/14/23 09:15 Temperature 97.9 F Pulse Rate 17 L Respiratory Rate 96 H Blood Pressure 145/96 H Oxygen Delivery Method Room Air Oxygen Delivery Method Room Air Narrative Exam Narrative: Alert oriented no acute distress. Heart regular rate and rhythm lungs clear to auscultation. Left lower extremity shows grossly normal alignment limited range of motion 70 degree arc. Tight gastroc. Healed medial and lateral incisions. Palpable dorsalis pedis pulse sensation grossly intact. 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 She has been indicated for total ankle arthroplasty. The risks and benefits of the procedure have been discussed with the patient and given the opportunity to ask questions. The risks of surgery include but are not limited to infection, malunion, nonunion, persistence of pain, damage to nerves and blood vessels, posttraumatic arthritis, DVT, PE, coardiopulmonary complications and . The patient expressed a thorough understanding of the risks and benefits of surgery and has elected to proceed. Consent was signed. We discussed adjunct procedures lengthenings and malleolar stabilization as indicated. Time Spent With Patient Time with patient: less than 30 minutes Quality VTE Deep Vein Thrombosis/Pulmonary Embolism Present on Admission: No
--- NOTE | 2023-09-14 10:42 | SUR.PREOP ---
Block start time 1035. Monitoring initiated and maintained throughout procedure. Time out performed. Oxygen and medications given per anesthesiologist instructions. Patient remained stable throughout procedure, no adverse reactions noted. Block end time 1042.
[2023-09-14] MEDS: CEFAZOLIN 2 GM/100 ML PREMIX 100 ML IV (10:50)
--- NOTE | 2023-09-14 11:10 | P.PCN_ITS ---
Peripheral Nerve Block Note Pre-Procedure Reason for block: Attending surgeon request/order for post-op pain management Pre-procedure checklist: Patient examined and chart reviewed, Risks, benefits, alternatives of block discussed, questions answered, Verification of anti- coagulation status, Site confirmed, Timeout performed and Standard ASA monitors applied Consent obtained from: Patient Procedure Date of procedure: 09/14/23 Start Time: 10:40 End Time: 10:45 Performed by: Charla Dugan Sedation - enter dose in comment field: IV Midazolam (mg) (2mg) and IV Fentanyl (mcg) (100mcg) Location: Pre-Op Position: Lateral Laterality: Left (popliteal block) Sterile Technique: Sterile barrier maintained, Sterile gloves, Mask and Chloraprep Skin Wheal: Lidocaine 2% mL: 1 Gauge: 30 Equipment Single injection - Needle brand, gauge, length: [place], 21g x 100mm Medications Medications - enter concentration (%) & mL in comment field: Ropivacaine (0.5%, 20mls) Incremental aspiration prior to injection: Yes Ultrasound Reason for Ultrasound: U/S guidance used for needle placement and U/S used to visualize spread of anesthetic Image printed/saved/archived: Yes Limited exam reveals no abnormal findings: Yes Vital signs VS: - 09/14/23 09:15 Temperature 97.9 F Pulse Rate 17 L Respiratory Rate 96 H Blood Pressure 145/96 H Oxygen Delivery Method Room Air Oxygen Delivery Method Room Air Events Nerve Block Events: Procedure uneventful
--- NOTE | 2023-09-14 11:29 | SUR.OPER ---
Supine on padded OR bed, head on pillow, arms secured on padded arm boards at <90 degrees abduction, legs uncrossed, safety belt at thigh, tape over blanket over lower legs.
[2023-09-14] MEDS: BUPIVACAINE 0.25% (PF) 30 ML, EPINEPHrine 0.15 MG INJ (13:44)
[2023-09-14] MEDS: BUPIVACAINE LIPOSOME 266 MG/20 ML VIAL INJ (13:45)
[2023-09-14 14:18] VITALS: BP 137/92; PULSE 93; RESP 14; TEMP 36.3; O2SAT 97
[2023-09-14 14:23] VITALS: BP 128/80; PULSE 91; RESP 16; O2SAT 96
[2023-09-14 14:27] VITALS: BP 146/82; PULSE 91; RESP 15; O2SAT 96
[2023-09-14 14:32] VITALS: BP 149/91; PULSE 91; RESP 14; TEMP 36.4; O2SAT 95
--- NOTE | 2023-09-14 14:34 | PM.OP.1 ---
Operative Date/Time/Diagnoses Date of procedure: 09/14/23 Time of procedure: 11:00 Pre-op diagnosis: Posttraumatic arthritis left ankle Sequelae trimalleolar ankle fracture, left Gastroc equinus Post-op diagnosis: same Procedure & Clinicians Procedure: 1. Total ankle arthroplasty left CPT code 04662 2. Gastroc recession, left Same procedure as scheduled: Yes Indications: Patient is a 47-year-old female status post trimalleolar fracture dislocation on the left side that was an injury that occurred at work. She had staged external fixation then open reduction internal fixation. She went on to posttraumatic arthritis was indicated for total ankle arthroplasty. She additionally had equinus. And was indicated for gastroc recession along with her total ankle arthroplasty on the left side. The risks and benefits of the procedure have been discussed with the patient and given the opportunity to ask questions. The risks of surgery include but are not limited to infection, malunion, nonunion, persistence of pain, damage to nerves and blood vessels, posttraumatic arthritis, DVT, PE, coardiopulmonary complications and . The patient expressed a thorough understanding of the risks and benefits of surgery and has elected to proceed. Consent was signed. Surgeon: Joanne Obrien [employer] Test Technician: Yudelka Boyce Anesthesia Type: General, Peripheral nerve block and Local Operative Notes Findings: End-stage posttraumatic ankle arthritis cartilage loss tibia and. Neutral alignment. Large talar neck spur. Gastroc equinus addressed with gastroc recession. Closure Type: primary Specimen(s): none sent Prosthetic devices, grafts, tissues, transplants, or devices: [employer] 28 [place] total ankle arthroplasty flat flat Tibia 2 long Talus 1 Poly 7 mm Estimated Blood Loss (mL): 100 Blood products transfused: none Tourniquet time (min): 130 Procedure in detail: Procedure total ankle replacement CPT code 21186 Preop diagnosis ankle arthritis Patient has end-stage ankle arthritis. They have been indicated for total ankle arthroplasty. The risks and benefits of the procedure have been discussed with the patient in the been given the opportunity ask questions. The risks of surgery include but are not limited to infection, malunion nonunion, fracture, persistent pain, damage to nerves and blood vessels, implant failure, DVT PE cardiopulmonary complications and . The patient expressed their understanding of the risks and benefits and has elected to proceed. Consent was signed. Additionally we discussed the need for additional procedures such as ligament balancing osteotomies and Achilles tendon lengthening. We discussed the intraoperative risk of fracture. The patient has been optimized medically. surgical instrument repair specialist statement During the operation the services of an is medically trained health information assistant was medically indicated and necessary to provide the exposure of the operative site for the surgical procedure and maintained alignment proper position to carry out the operation safely and efficiently. Without a qualified health information assistant being present this would extend the operative procedure and make that procedure technically more difficult to perform. Patient was seen in the preoperative area and the site of surgery was marked informed consent confirmed. Final questions were answered. The patient was also seen by the anesthesiologist and a peripheral nerve block was placed for postoperative pain control. The patient was brought back to the operating room by the anesthesia team and positioned supine on operative table. All bony problems well padded. A well-padded thigh tourniquet was placed on the upper thigh. An ipsilateral thigh bump was placed. A bump was placed on the calf with a heel hang free. The operative lower extremity was then prepped and draped in the standard sterile fashion. A formal time-out procedure was performed confirming the patient site of surgery and administration of preoperative antibiotics which was 2 g of Ancef. Implants were in the room accounted for. All were in agreement. Attention was turned to the operative lower extremity an Esmarch bandage was used for exsanguination the tourniquet elevated the thigh to 250 mm of mercury. A standard anterior approach to the ankle was drawn out over the leg approximately 12 cm in length and 1 cm lateral to the tibial crest extended longitudinally bisecting the tibiotalar joint and talonavicular joint. This was taken down through the skin and subcutaneous tissues with care taken to isolate and protect the superficial peroneal nerve branch. Next the extensor retinaculum was opened and tagged with an 0 Vicryl for later repair. The EHL tendon sheath was opened and the EHL and neurovascular bundle were retracted laterally and the tibialis anterior was kept into its sheath and retracted medially. This brought us down directly on the anterior tibia. Dissection was taken all the way to the talonavicular joint to expose the talus. The capsule was divided and retracted. The joint demonstrated end-stage tibiotalar arthritis with large anterior distal tibial spurs and talar spurring. The Bovie cautery and elevators and scalpel were used to remove the periosteum along the anterior tibia and expose the joint. retractors were used to protect the EHL and neurovascular bundle. At this point attention was turned to the tibial tubercle and a pin was placed in the tubercle with care to make this perpendicular to the shaft in line with osteotome placed and the ankle joint. Next the jig was placed in the 0 slot and then slid down to the level of the joint. The height was locked into place. Final adjustments were made for varus and valgus as well as rotation once this was appropriate these were locked in place and the final height of the resection was marked and locked in place, the slope was also checked with the guide jakub.. The sizing block was then placed and a size 2 tibia was selected. Next a flat/flat guide was placed and pinned this was checked on the lateral to make sure the resection was appropriate. Once this was appropriate this was pinned in place in the tibia and flat cut talus cuts were all made. The corners of the tibial cut were drilled and then the reciprocal saw was used for the corners and the sagittal saw for the distal tibial resection. The bone was noted to be quite hard and the tibia. The tibia and talus were removed. The reciprocal saw was used to clean of the medial lateral gutters on the talus and removed any remaining osteophytes. Talus was then sized this sized to a size 1. Next the tibial tray was pinned in place. Punch holes for the tibial tray were placed and punched using the impaction jig. Reduction was performed and a trial poly placed which gave great stability with a 7 mm poly. Next the talus was finished with a drill holes after the tibial trial tray was removed. Final irrigation was completed. The final implants were opened. Tibia was placed 1st and the pegs were impacted under direct visualization and fluoroscopic visualization. Next the talus was then reduced. Talus was placed and mallet it down. This was confirmed on the lateral and AP views with appropriate alignment bony contact. Poly ethylene trial was then placed. There is no evidence of lift-off. There was excellent bony contact. Then the final poly was placed. Range of motion was checked. It the foot was plantigrade. Goal was stable to varus and valgus stress testing no significant laxity was noted. Patient did have a gastroc contracture decision was made for gastroc recession. This was performed through a separate incision approximately 15 cm above the heel along the posterior medial calf skin incision was made dissection was taken down to the level of the fascia which was then opened and retracted. Gastroc fascia was encountered and was carefully released from medial to lateral utilizing a dorsiflexion stretch to create a proximally 2 cm stretch. Once this was completed there was dorsiflexion to greater than 10? with the knee extended. And the wound was irrigated and closed with 4-0 Monocryl and 4-0 nylon suture. Final x-rays were taken AP, mortise and lateral images as well as dorsiflexion plantar flexion images prior to gastroc recession.. These were saved. Tourniquet was released. Hemostasis was achieved. Wound was irrigated capsule was closed with 0 Vicryl. Retinaculum was closed with 2-0 PDS. Subcutaneous tissue was closed with 4-0 Monocryl and skin with 3-0 nylon. Local anesthetic was infiltrated for postoperative pain control. Dressing was placed with Xeroform, gauze, Webril, bulky Harper cotton and a posterior and U splint. The patient was woken from anesthesia and taken to recovery room in good condition. There no immediate complications with this procedure. Complications: none Post-operative Condition: stable Disposition: PACU Plan for aftercare: Nonweightbearing left lower extremity 2-3 weeks for incision healing. Then will start progressive weight-bearing in a boot 25% each week. Keep splint dry. Aspirin for DVT prophylaxis x6 weeks.
[2023-09-14 15:15] VITALS: BP 141/83; PULSE 90; RESP 15; TEMP 36.4; O2SAT 96
== END 2023-09-14 15:16 | disposition home or self-care (01) ==
PROVIDERS: PCP Family Medicine; Referring Provider Orthopaedic Surgery Foot and Ankle Surgery; Visit Provider Orthopaedic Surgery Foot and Ankle Surgery
PROC: (CPT 27702; principal; 2023-09-14 10:45)
PROC: (CPT 27685; 2023-09-14 10:45)
DX: M19.172 Post-traumatic osteoarthritis, left ankle and foot (principal); M62.462 Contracture of muscle, left lower leg; S82.852S Displaced trimalleolar fracture of left lower leg, sequela; G89.18 Other acute postprocedural pain; M25.772 Osteophyte, left ankle
CPT/HCPCS: 27702; 27687; 64450; 73600; 76000; C9290; J0171; J0690; J1100; J2250; J2405; J2704; J2765; J3010

== ENCOUNTER → 2024-08-04 14:41 | Outpatient (CLI) | payer OTHER, SELFPAY ==
--- NOTE | 2024-08-04 14:42 | DI.MG.S_ITS ---
BILATERAL DIGITAL SCREENING MAMMOGRAM 3D/2D WITH CAD: 08/04/2024 CLINICAL: Routine screening. Family history of breast cancer. Comparison is made to exams dated: 06/19/2022 mammogram, 02/14/2021 mammogram, and 01/22/2020 mammogram - [facility]. The breasts are heterogeneously dense, which may obscure small masses (category c / 51-75% glandular tissue). Current study was also evaluated with a Computer Aided Detection (CAD) system. There are benign cysts in both breasts. There also are benign post operative findings and biopsy clip in the left breast. No significant masses, calcifications, or other findings are seen in either breast. There has been no significant interval change. IMPRESSION: BENIGN There is no mammographic evidence of malignancy. A 1 year screening mammogram is recommended. Based on Tyrer-Cuzick model (a risk assessment model), the patient's lifetime risk is 36.3% and her 10 year risk is 9.2%. If a patient has an elevated risk, a more comprehensive evaluation should be considered and/or a referral to a genetic counselor. The [place] [employer], [place] [employer], and NCCN Guidelines advise the consideration of Breast MRI as an adjunct to screening mammography in patients whose Lifetime risk to develop breast cancer is 20% or higher. This exam was interpreted at Station ID: [id number]. NOTE: For mammograms, a report in lay terms will be sent to the patient. Approximately 15% of breast malignancies will not be visualized mammographically. In the management of a palpable breast mass, a negative mammogram must not discourage biopsy of a clinically suspicious lesion. Electronically Signed By: Ladarius mooney/orion:08/07/2024 08:43:33 letter sent: Normal Exam ACR BI-RADS Category 2: Benign [id number]
== END ==
PROVIDERS: PCP Family Medicine; Referring Provider Family Medicine; Visit Provider Family Medicine
DX: Z12.31 Encounter for screening mammogram for malignant neoplasm of breast (principal); Z80.3 Family history of malignant neoplasm of breast; R92.333 Mammographic heterogeneous density, bilateral breasts
CPT/HCPCS: 77063; 77067

== ENCOUNTER → 2024-09-15 09:04 | Outpatient (CLI) | payer OTHER, SELFPAY ==
[2024-09-15 09:52] LABS: Add Manual Diff / Slide Review NO; Basophils Absolute Auto 0 /uL (0-100); Basophils Percent Auto 0.8 % (0-2); Eosinophils Absolute Auto 100 /uL (0-450); Eosinophils Percent Auto 2.7 % (2-4); Hematocrit 38.7 % (36-46); Hemoglobin 12.9 g/dL (12.0-16.0); Lymphocytes Absolute Auto 1900 /uL (1100-4500); Lymphocytes Percent Auto 48.2 % (25-40); Mean Corpuscular HGB Conc 33.5 % (30-36); Mean Corpuscular Hemoglobin 30.2 PG (26-34); Mean Corpuscular Volume 90.2 fL (80-100); Monocytes Absolute Auto 300 /uL (0-900); Monocytes Percent Auto 6.9 % (3-14); Neutrophils Absolute Auto 1700 /uL (1500-7000); Neutrophils Percent Auto 41.4 % (50-75); Platelet Count 314 X10^3/uL (150-400); Red Blood Cell Count 4.29 X10^6/uL (4.0-5.2)
[2024-09-15 10:10] LABS: Alanine Aminotransferase 23 IU/L (<35); Albumin 4.3 g/dL (3.5-5.0); Albumin Globulin Ratio 1.5 (1.0-2.8); Alkaline Phosphatase 86 U/L (38-126); Aspartate Aminotransferase 30 IU/L (14-36); BUN Creatinine Ratio 15.2 (6-22); Bilirubin Total 0.4 mg/dL (0.2-1.3); Blood Urea Nitrogen 10 mg/dL (7-17); Calcium 9.3 mg/dL (8.4-10.2); Carbon Dioxide 28 mmol/L (22-32); Chloride 101 mmol/L (98-107); Cholesterol 232 mg/dL (140-199); Estimated Glomerular Filt Rate > 60 mL/min (>60); Globulin 2.9 g/dL (1.7-4.1); Glucose 97 mg/dL (70-100); HDL Cholesterol 78 mg/dL (40-60); HEMOLYSIS < 15 (0-50); LDL Cholesterol Calculated 125 mg/dL (<100); Potassium 4.2 mmol/L (3.4-5.1); Sodium 135 mmol/L (137-145); Total Protein 7.2 g/dL (6.3-8.2); Triglycerides 146 mg/dL (35-150)
[2024-09-15 10:27] LABS: Vitamin D 25 Hydroxy (D3) 53.1 ng/mL (30.0-100.0)
[2024-09-15 10:31] LABS: Hemoglobin A1C% w Est Avg Glu 5.9 % (4.0-6.0)
[2024-09-15 10:58] LABS: Vitamin B12 975 pg/mL (239-931)
[2024-09-15 17:00] LABS: HIV 1 & 2 Ab/Ag 4th Gen Combo NEGATIVE (NEGATIVE); Hep C Virus Ab w/Reflex Quant NEGATIVE s/c (NEGATIVE)
== END ==
PROVIDERS: PCP Family Medicine; Referring Provider Family Medicine; Visit Provider Family Medicine
DX: Z00.00 Encounter for general adult medical examination without abnormal findings (principal); N95.1 Menopausal and female climacteric states; Z86.19 Personal history of other infectious and parasitic diseases
CPT/HCPCS: 36415; 80053; 80061; 82306; 82607; 83036; 85025; 86803; 87389

== ENCOUNTER → 2025-11-02 08:36 | Outpatient (CLI) | payer OTHER, SELFPAY ==
[2025-11-02 08:57] LABS: Hematocrit 39.7 % (36-46); Hemoglobin 13.5 g/dL (12.0-16.0); Mean Corpuscular HGB Conc 33.9 % (30-36); Mean Corpuscular Hemoglobin 30.0 PG (26-34); Mean Corpuscular Volume 88.4 fL (80-100); Platelet Count 320 X10^3/uL (150-400)
[2025-11-02 09:15] LABS: Hemoglobin A1C% w Est Avg Glu 5.7 % (4.0-6.0)
[2025-11-02 11:00] LABS: Alanine Aminotransferase 19 IU/L (<35); Albumin 4.5 g/dL (3.5-5.0); Albumin Globulin Ratio 1.4 (1.0-2.8); Alkaline Phosphatase 96 U/L (38-126); Blood Urea Nitrogen 10 mg/dL (7-17); Calcium 9.2 mg/dL (8.4-10.2); Carbon Dioxide 26 mmol/L (22-32); Chloride 105 mmol/L (98-107); Cholesterol 245 mg/dL (140-199); Estimated Glomerular Filt Rate > 60 mL/min (>60); Globulin 3.2 g/dL (1.7-4.1); Glucose 94 mg/dL (70-99); HDL Cholesterol 79 mg/dL (40-60); HEMOLYSIS < 15 (0-50); Potassium 4.3 mmol/L (3.4-5.1); Sodium 138 mmol/L (137-145); Total Protein 7.7 g/dL (6.3-8.2); Triglycerides 114 mg/dL (35-150)
[2025-11-02 11:12] LABS: Follicle Stimulating Hormone 35.7 mIU/mL
[2025-11-02 11:27] LABS: Estradiol, Total 70.6 pg/mL
== END ==
PROVIDERS: PCP Family Medicine; Referring Provider Family Medicine; Visit Provider Family Medicine
DX: Z12.11 Encounter for screening for malignant neoplasm of colon (principal); E78.2 Mixed hyperlipidemia; N95.1 Menopausal and female climacteric states; R73.03 Prediabetes
CPT/HCPCS: 36415; 80053; 80061; 82274; 82670; 83001; 83002; 83036; 85027

== ENCOUNTER → 2025-11-02 | Outpatient (CLI) | payer OTHER, SELFPAY | LOC: CT 09:44 | PROVIDERS: PCP Family Medicine; Referring Provider Family Medicine; Visit Provider Family Medicine | DX: Z12.2 Encounter for screening for malignant neoplasm of respiratory organs (principal); F17.290 Nicotine dependence, other tobacco product, uncomplicated; K80.20 Calculus of gallbladder without cholecystitis without obstruction; Z12.11 Encounter for screening for malignant neoplasm of colon; E78.2 Mixed hyperlipidemia; N95.1 Menopausal and female climacteric states; R73.03 Prediabetes | CPT/HCPCS: 36415; 71271; 80053; 80061; 82274; 82670; 83001; 83002; 83036; 85027 ==